=== PATIENT | male | born 1980 | race African-American/Black ===

== ENCOUNTER 2017-10-08 11:50 | Emergency (ER) | payer OTHER ==
[2017-10-08 12:05] VITALS: PULSE 126; TEMP 98.6; BMI 47.5
--- NOTE | 2017-10-08 12:44 | PDOC ---
Attending Attestation - Resident Resident Name: Kamaljit Britton - ED Attending Attestation I have performed the following: I have examined & evaluated the patient, The case was reviewed & discussed with the resident, I agree w/resident's findings & plan, Exceptions are as noted - HPI HPI: 10/08/17 20:07 Agree with resident's history of present illness - Physicial Exam PE: 10/08/17 20:08 Agree with physical exam - Medical Decision Making 10/08/17 20:10 Enlarged lymph node under chin patient well-appearing no apparent distress no evidence of Cesar angina neck is supple patient nontoxic Possibly secondary to infected hair on chin. We'll treat with 1 week course of Augmentin patient return to ED for any severe worsening symptoms otherwise he will follow-up with ENT as an outpatient Findings, the need for follow-up, strict return instructions discussed with patient.
--- NOTE | 2017-10-08 13:15 | PDOC ---
History of Present Illness - General Chief Complaint: Pain, Acute Stated Complaint: SWOLLEN NECK, CONGESTED Time Seen by Provider: 10/08/17 12:40 History Source: Patient Exam Limitations: No Limitations - History of Present Illness Initial Comments: 10/08/17 13:13 37 with pmh of HTN presents with tender left-sided submental mass increasing in size for the past few days. Also admits to ingrown hair under chin near area a few days before apparition of mass. 10/08/17 20:08 Past History - Past Medical History Allergies/Adverse Reactions: Allergies Allergy/AdvReac Type Severity Reaction Status Date / Time shellfish derived Allergy Difficulty Verified 10/08/17 11:59 Breathing Home Medications: Ambulatory Orders Losartan Potassium [Cozaar -] 100 mg PO DAILY #30 tablet 05/31/16 Amoxicillin - [Amoxicillin 500mg Capsule -] 500 mg PO TID 06/23/16 Ergocalciferol (Vitamin D2) [Vitamin D2] 50,000 unit PO WEEKLY 06/23/16 Oxycodone HCl/Acetaminophen [Percocet 5-325 mg Tablet] 1 - 2 tab PO Q4H PRN #10 tablet MDD 6 06/23/16 Simvastatin [Zocor -] 20 mg PO HS 06/23/16 Clindamycin [Cleocin -] 300 mg PO TID #21 capsule 10/05/16 Diazepam [Valium] 2 mg PO TID PRN #15 tablet MDD 10mg 11/04/16 Naproxen [Naprosyn -] 500 mg PO BID PRN #14 tablet 11/04/16 Amoxicillin/Potassium Clav [Augmentin 875-125 Tablet] 1 each PO BID 7 Days #14 tablet 10/08/17 Unobtainable 10/08/17 COPD: No HTN: Yes Hypercholesterolemia: Yes - Surgical History Orthopedic Surgery: Yes (bone fragment lodged in rt elbow) - Immunization History Immunization Up to Date: Yes - Suicide/Smoking/Psychosocial Hx Smoking History: Never smoked Have you smoked in the past 12 months: No Information on smoking cessation initiated: No Hx Alcohol Use: No Drug/Substance Use Hx: No Substance Use Type: None Hx Substance Use Treatment: No Review of Systems - Review of Systems Able to Perform ROS?: Yes Is the patient limited German proficient: No Constitutional: No: Symptoms Reported HEENTM: Yes: See HPI Respiratory: No: Symptoms reported Cardiac (ROS): No: Symptoms Reported ABD/GI: No: Symptoms Reported : No: Symptoms Reported Musculoskeletal: No: Symptoms Reported Integumentary: No: Symptoms Reported Neurological: No: Symptoms reported *Physical Exam - Vital Signs Last Vital Signs Temp Pulse Resp BP Pulse Ox 98.6 F 126 H 20 161/104 97 10/08/17 12:01 10/08/17 12:01 10/08/17 12:01 10/08/17 12:01 10/08/17 12:01 - Physical Exam General Appearance: Yes: Nourished, Appropriately Dressed, Obese. No: Apparent Distress HEENT: positive: EOMI, LYUDMILA, Normal ENT Inspection Neck: positive: Other (swollen mass under left chin, not fluctuent, fixed tender , oblong. Healing ingrown hair with scar next to it) Respiratory/Chest: positive: Lungs Clear, Normal Breath Sounds. negative: Chest Tender Cardiovascular: positive: Regular Rhythm, Regular Rate, S1, S2 Gastrointestinal/Abdominal: positive: Normal Bowel Sounds, Soft, Protuberent. negative: Tender Medical Decision Making - Medical Decision Making 10/08/17 20:11 Bedside ultrasound of mass revealing round cystic nature. Likely swollen submental lymph node. Treated with Augmentin, given outpatient prescription. D/c *DC/Admit/Observation/Transfer Diagnosis at time of Disposition: Abscess of neck - Discharge Dispostion Disposition: HOME Condition at time of disposition: Good - Prescriptions Prescriptions: Amoxicillin/Potassium Clav [Augmentin 875-125 Tablet] 1 each PO BID 7 Days #14 tablet - Referrals Referrals: Henri Iglesias MD [Primary Care Provider] - - Patient Instructions Printed Discharge Instructions: DI for Folliculitis - Post Discharge Activity
[2017-10-08] MEDS ORDERED: AMOX TR/POT CLAV 875MG/125MG TABLETS (FP) PO ONE (13:20)
[2017-10-08] MEDS ORDERED: AMOX TR/POT CLAV 875MG/125MG TABLETS (FP) ONE (14:07)
[2017-10-08 14:13] VITALS: BP 148/71
== END 2017-10-08 14:15 | disposition home or self-care (01) ==
LOC: JER 11:50
DX: L04.0 Acute lymphadenitis of face, head and neck (principal); I10 Essential (primary) hypertension; E78.00 Pure hypercholesterolemia, unspecified
CPT/HCPCS: 99282-25

== ENCOUNTER 2018-02-26 06:28 | Inpatient (IN) | payer OTHER ==
--- NOTE | 2018-02-26 07:09 | PDOC ---
History of Present Illness <Rhonda Gilliland - Last Filed: 02/26/18 08:15> - History of Present Illness Initial Comments: 02/26/18 07:24 The patient is a 37 year old male with a history of HTN, HLD, Asthma who presents for evaluation of SOB. The patient reports a 2 day history of worsening SOB and chest tightness with associated productive cough prompting his presentation to the ED for evaluation. The patient denies similar symptoms in the past and endorses some subjective fevers and chills. He otherwise denies chest pain, nausea, vomiting, abdominal pain, recent long travel, or changes with urination or bowel movements. <MyrnaEsequiel - Last Filed: 02/26/18 10:57> - General Chief Complaint: Shortness of Breath Stated Complaint: S.O.B. Time Seen by Provider: 02/26/18 07:02 Past History <Rhonda Gilliland - Last Filed: 02/26/18 08:15> - Past Medical History COPD: No HTN: Yes Hypercholesterolemia: Yes - Surgical History Orthopedic Surgery: Yes (bone fragment lodged in rt elbow) - Immunization History Immunization Up to Date: Yes - Suicide/Smoking/Psychosocial Hx Smoking History: Never smoked Have you smoked in the past 12 months: No Information on smoking cessation initiated: No Hx Alcohol Use: No Drug/Substance Use Hx: No Substance Use Type: None Hx Substance Use Treatment: No <Esequiel Norris - Last Filed: 02/26/18 10:57> - Past Medical History Allergies/Adverse Reactions: Allergies Allergy/AdvReac Type Severity Reaction Status Date / Time shellfish derived Allergy Difficulty Verified 02/26/18 06:49 Breathing Home Medications: Ambulatory Orders Amlodipine Besylate [Norvasc -] 5 mg PO DAILY 02/26/18 Losartan Potassium 25 mg PO DAILY 02/26/18 Simvastatin 40 mg PO DAILY 02/26/18 Review of Systems - Review of Systems Comments:: 02/26/18 07:29 Constitutional: Fevers. No fatigue, malaise HEENT: No Rhinorrhea, nasal congestion, visual changes Cardiovascular: Chest Tightness. No syncope, palpitations, lightheadedness Respiratory: Cough, SOB. No Hemoptysis, Gastrointestinal: No Abdominal pain, Nausea, Vomiting, Constipation, Diarrhea, Melena Genitourinary: No Dysuria, Frequency, Urgency, Hesitancy, Hematuria, Flank pain Musculoskeletal: No Myalgia, arthralgia Skin: No rashes, itching, bruising, pallor Neurologic: No Headache, Dizziness, Numbness, Weakness, or Tingling Psychiatric: No Hallucinations. No SI or HI <Esequiel Norris - Last Filed: 02/26/18 10:57> *Physical Exam - Vital Signs Last Vital Signs Temp Pulse Resp BP Pulse Ox 98.9 F 132 H 20 161/13 95 02/26/18 06:44 02/26/18 06:44 02/26/18 06:44 02/26/18 06:44 02/26/18 06:55 <Rhonda Gilliland - Last Filed: 02/26/18 08:15> - Vital Signs Last Vital Signs Temp Pulse Resp BP Pulse Ox 98.9 F 132 H 20 161/13 95 02/26/18 06:44 02/26/18 06:44 02/26/18 06:44 02/26/18 06:44 02/26/18 06:55 - Physical Exam Comments: 02/26/18 07:30 General Appearance: Nourished. No Apparent Distress HEENT: EOMI, LYUDMILA. No Pharyngeal Erythema, Tonsillar Exudate, Tonsillar Erythema Neck: No Cervical Lymphadenopathy Respiratory/Chest: Lungs Clear, Normal Breath Sounds. Diffuse Expiratory Wheezing noted on exam. No Crackles, Rales, Rhonchi, Cardiovascular: Regular Rhythm, Regular Rate. No Murmur, Gallops, Rubs Gastrointestinal/Abdominal: Normal Bowel Sounds, Soft. No Guarding, Rebound, Tenderness Musculoskeletal: No CVA Tenderness Extremity: Normal Capillary Refill Integumentary: Normal Color, Dry, Warm Neurologic: Fully Oriented, Alert, Normal Mood/Affect, Normal Response, <Esequiel Norris - Last Filed: 02/26/18 10:57> Heart Score/ECG Review #1 ECG reviewed & interpreted by me at: 07:15 (Sinus Tachycardia, ST depressions in leads II, III, aVF) General ECG Interpretation: Sinus Rhythm, Normal Intervals <Esequiel Norris - Last Filed: 02/26/18 10:57> ED Treatment Course - LABORATORY CBC & Chemistry Diagram: 02/26/18 07:15 02/26/18 07:15 <Rhonda Gilliland - Last Filed: 02/26/18 08:15> - LABORATORY CBC & Chemistry Diagram: 02/26/18 07:15 02/26/18 07:15 <Esequiel Norris - Last Filed: 02/26/18 10:57> Medical Decision Making - Medical Decision Making 02/26/18 7:19pm Call placed to Dr. Butler's answering service, cardiology condominium manager, awaiting call back. 7:40pm Second call placed to Dr. Butler's answering service, cardiology condominium manager, awaiting call back. 8:[address] Bartlett, case was discussed. <Rhonda Gilliland - Last Filed: 02/26/18 08:15> - Medical Decision Making 02/26/18 07:31 The patient is a 37 year old male with a history of HTN, HLD who presents for evaluation of SOB. Differential includes but is not limited to: ACS, COPD, Asthma, Pneumonia, CHF, Infectious, metabolic derangement. EKG performed demonstrates concerning findings of ST depressions in leads II, III, aVF concerning for ischemia possible contributing to the patient's symptoms. We will obtain a cbc, cmp, troponin, bnp, chest plain film to evaluate further. We will treat with nitroglycerin in the meantime and obtain cardiology consultation. We will continue to monitor and reassess. 02/26/18 08:09 We discussed the case with Dr. Bartlett who reviewed the patient's EKG and agrees with possible ischemic changes although not acute STEMI at this time. We discussed that PE is on the differential and the patient should undergo CT to evaluate further. We will treat the patient with ASA and Dr. Bartlett will come evaluate. The patient reports some improvement in his symptoms after treatment with nitroglycerin. We will continue to monitor and reassess. 02/26/18 10:56 CBC, cmp, troponin are unremarkable. Chest plain film is unremarkable as read by our radiologist. The patient will require admission for further work up and monitoring given the patient's EKG changes and continued symptoms. We discussed the case with the hospitalist team who accepted the patient for admission. <Esequiel Norris - Last Filed: 02/26/18 10:57> *DC/Admit/Observation/Transfer - Attestations Scribe Attestion: 02/26/18 07:22 Documentation prepared by Rhonda Gilliland, acting as vice president medical affairs for Marybel Talamantes MD. <Rhonda Gilliland - Last Filed: 02/26/18 08:15> - Discharge Dispostion Admit: Yes <Esequiel Norris - Last Filed: 02/26/18 10:57> Diagnosis at time of Disposition: SOB (shortness of breath), EKG abnormalities Chest pain Qualifiers: Chest pain type: unspecified Qualified Code(s): R07.9 - Chest pain, unspecified - Discharge Dispostion Condition at time of disposition: Stable - Referrals Referrals: Henri Iglesias MD [Primary Care Provider] - - Patient Instructions - Post Discharge Activity
[2018-02-26] MEDS ORDERED: ALBUTEROL SO4 2.5/IPRATROPIUM 0.5 INH SOL 3 ML VIAL.NEB. NEB ONE ×3 (07:14→11:09)
[2018-02-26] MEDS ORDERED: NITROGLYCERIN SUBLINGUAL 1/150 0.4 MG TAB SL ONE (07:19)
[2018-02-26] MEDS ORDERED: NITROGLYCERIN SUBLINGUAL 1/150 0.4 MG TAB ONE (07:29)
[2018-02-26 07:49] LABS: HEMATOCRIT 41.2 % (35.4-49); HEMOGLOBIN 13.6 GM/dL (11.7-16.9); MCH 27.9 pg (25.7-33.7); MEAN CELL VOLUME 84.5 fl (80-96); PLATELET COUNT 213 K/MM3 (134-434); RBC 4.88 M/mm3 (4.00-5.60)
--- NOTE | 2018-02-26 08:01 | PDOC ---
Attending Attestation - HPI HPI: 02/26/18 08:14 The patient is a 37 year old male, with a significant past medical history of hypertension, hyperlipidemia, and asthma, who presents to the emergency department with, two days of worsening shortness of breath. Secondary to his shortness of breath, the patient reports chest tightness with an associated productive cough. He denies similar symptoms in the past. He denies any recent long travel. He denies any recent fevers, chills, headache or dizziness. He denies any recent nausea, vomit, diarrhea or constipation. He denies any recent chest pain. He denies any recent dysuria, frequency, urgency or hematuria. Allergies: Shellfish derived. Past surgical history: None reported. Social History: Nonsmoker. Denies EtOH use and recreational drug use. Primary Care Physician: Dr. Henri Iglesias <Rhonda Gilliland - Last Filed: 02/26/18 08:13> - Resident Resident Name: Esequiel Norris - ED Attending Attestation I have performed the following: I have examined & evaluated the patient, The case was reviewed & discussed with the resident, I agree w/resident's findings & plan, Exceptions are as noted - Physicial Exam PE: GENERAL: Awake, alert, and fully oriented. Appears anxious. Morbidly obese. HEAD: No signs of trauma EYES: PERRLA, EOMI, sclera anicteric, conjunctiva clear ENT: Auricles normal inspection, hearing grossly normal, nares patent, oropharynx clear without exudates. Moist mucosa NECK: Normal ROM, supple, no lymphadenopathy, JVD, or masses LUNGS: Breath sounds equal, clear to auscultation bilaterally. No wheezes, and no crackles HEART: Tachycardic, normal S1 and S2, no murmurs, rubs or gallops ABDOMEN: Soft, nontender, normoactive bowel sounds. No guarding, no rebound. No masses EXTREMITIES: Normal range of motion, no edema. No clubbing or cyanosis. No cords, erythema, or tenderness NEUROLOGICAL: Cranial nerves II through XII grossly intact. Normal speech, normal gait. Motor and sensation intact. SKIN: Warm, Dry, normal turgor, no rashes or lesions noted. - Medical Decision Making 02/26/18 08:31 Pt presents with SOB, productive cough. EKG concerning for ischemia based on inferior ST depressions. Patient is hypoxic to 88%, improves to 94% with 4L NC. DDx includes acute LA, PE, CHF, pna, asthma. EKG changes are concerning, and he initially did not state history of asthma (it was found upon chart review). He improved with nitro. D/w Dr. Bartlett, bindery production manager for cardiology. We will obtain CTA. Will plan for admission. <Marybel Talamantes - Last Filed: 02/26/18 10:50> Attestations - Attestations 02/26/18 08:14 Documentation prepared by Rhonda Gilliland, acting as medical surgical tech for Marybel Talamantes MD. <Rhonda Gilliland - Last Filed: 02/26/18 08:13>
[2018-02-26] MEDS ORDERED: ASPIRIN 81 MG CHEWABLE TABLETS PO ONE (08:07)
[2018-02-26] MEDS ORDERED: ASPIRIN 81 MG CHEWABLE TABLETS ONE (08:11)
[2018-02-26 08:13] LABS: ALBUMIN 3.7 g/dl (3.4-5.0); ANION GAP 7 (8-16); BILIRUBIN,TOTAL 0.5 mg/dL (0.2-1.0); BLOOD UREA NITROGEN 17 mg/dL (7-18); CHLORIDE 105 mmol/L (98-107); CO2 28 mmol/L (21-32); CREATININE 1.4 mg/dL (0.7-1.3); GLUCOSE,RANDOM 122 mg/dL (74-106); SGOT/AST 15 U/L (15-37); SGPT/ALT 23 U/L (12-78); SODIUM 140 mmol/L (136-145); TOT PROT 7.6 g/dl (6.4-8.2)
[2018-02-26 08:16] LABS: ALK PHOS 83 U/L (45-117)
[2018-02-26] MEDS ORDERED: SODIUM CHLORIDE 500 ML IV STA (08:25)
--- NOTE | 2018-02-26 09:23 | CON.CARD ---
Consult Consult Specialty:: Cardiology for Leah Referred by:: Dr. Talamantes Reason for Consultation:: Abnl ECG, dyspnea - History of Present Illness Chief Complaint: Cough, rhinorrhea and SOB x 1 day History of Present Illness: 37M HTN, HL, asthma presents to ER with one day of dry cough, SOB and "runny nose" Last evening he heard "crackles" when he was breathing and decided to come to ER. Denies palpitations, chest pain. No edema. No PND/orthopnea. No fevers or chills. - History Source History Provided By: Patient, Medical Record Limitations to Obtaining History: No Limitations - Past Medical History Cardio/Vascular: Yes: HTN, Hyperlipdemia Pulmonary: Yes: Asthma Gastrointestinal: No: Ascites, Cancer, Constipation, Crohn's Disease, Diverticulitis, Diverticulosis, Esophageal Varices, Gastritis, GERD, GI Bleed, Hemorrhoids, Hiatal Hernia, Inflamatory Bowel Disease, Irritable Bowel Disease, Pancreatitis, Peptic Ulcer Disease, Ulcerative Colitis, Other Hepatobiliary: No: Cirrhosis, Cholelithiasis, Cholecystitis, Choledocholithiasis , Hepatitis A, Hepatitis B, Hepatitis C, Other Renal/: No: Renal Failure, Renal Inusuff, BPH, Cancer, Hematuria, Hemodialysis , Neurogenic Bladder, Renal Calculi, UTI, Other Heme/Onc: No: Anemia, B12 Deficiency, Bleeding Disorder, Cancer, Current Chemotherapy, Current Radiation Therapy, Hemochromatosis, Hypercoaguable State, Myeloproliferative Synd, Sickle Cell Disease, Sickle Cell Trait, Thrombocytopenia, Other Infectious Disease: No: AIDS, C-Diff, Herpes Zoster, HIV, MRSA, STD's, Tuberculosis, VREF, Other Musculoskeletal: Yes: Other (right elbow injury in ) ENT: No: Allergic Rhinitis, Sinusitis, Other Endocrine: No: [place]'s Disease, Laron's Disease, Diabetes Insipidus, Diabetes Mellitus, Hyperparathyroidism, Hyperthyroidism, Hypothyroidism, Osteopenia, SIADH, Other - Past Surgical History Past Surgical History: No: None, AAA Repair, AICD, Amputation, Appendectomy, Arthrosocopy, AV Fistula/Graft, Bariatric Surgery, Breast Biopsy, Bypass, CABG, Carotid Endarterectomy, Cataract Removal, Cholecystectomy, Colectomy, Colonoscopy, Colostomy, Craniotomy, , Cystectomy, Hernia Repair, Hysterectomy, Ileal Conduit, Ileosotomy, Joint Replacement, Kidney Transplant, Laminectomy, Liver Transplant, Mastectomy, Nephrectomy, Oopherectomy, Orchiectomy, Permanent Pacemaker, Prostatectomy, Splenectomy, Stent, Thoracotomy , TURP, Tonsillectomy, Tubal Ligation, Upper Endoscopy, Valve Replacement, Vasectomy, Vein Stripping/Ligation - Alcohol/Substance Use Hx Alcohol Use: No History of Substance Use: reports: None - Smoking History Smoking history: Never smoked Have you smoked in the past 12 months: No - Social History Usual Living Arrangement: Other (with family) Occupation: works for [employer] History of Recent Travel: No Home Medications - Allergies Allergies/Adverse Reactions: Allergies Allergy/AdvReac Type Severity Reaction Status Date / Time shellfish derived Allergy Difficulty Verified 02/26/18 06:49 Breathing - Home Medications Home Medications: Ambulatory Orders Amlodipine Besylate [Norvasc -] 5 mg PO DAILY 02/26/18 Losartan Potassium 25 mg PO DAILY 02/26/18 Simvastatin 40 mg PO DAILY 02/26/18 Family Disease History - Family Disease History Family History: Unremarkable (no early CAD or SCD) Family Disease History: Other: Mother (HTN) Review of Systems Findings/Remarks: 37 year old male, with a significant past medical history of hypertension, hyperlipidemia, and asthma, who presents to the emergency department with, two days of worsening shortness of breath. Secondary to his shortness of breath, the patient reports chest tightness with an associated productive cough. He denies similar symptoms in the past. He denies any recent long travel. He denies any recent fevers, chills, headache or dizziness. He denies any recent nausea, vomit, diarrhea or constipation. He denies any recent chest pain. He denies any recent dysuria, frequency, urgency or hematuria. Allergies: Shellfish derived. Past surgical history: None reported. Social History: Nonsmoker. Denies EtOH use and recreational drug use. - Review of Systems Constitutional: denies: No Symptoms, Chills, Diaphoresis, Fever, Lethargy, Loss of Appetite, Malaise, Night Sweats, Unintentional Wgt. Loss, Weakness, Other Eyes: denies: No Symptoms, Blind Spots, Blurred Vision, Double Vision, Eye Pain , Floaters, Photophobia, Recent Change in Vision, Other HENT: denies: No Symptoms, Difficult Swallowing, Ear Discharge, Ear Pain, Epistaxis, Gingival Bleeding, Hearing Loss, Mouth Swelling, Nasal Congestion, Ocular Prosthesis, Throat Pain, Toothache, Ringing in Ears, Other Neck: denies: No Symptoms, Decreased ROM, Lumps, Pain on Movement, Stiffness, Swollen Glands, Tenderness, Other Cardiovascular: denies: No Symptoms, Chest Pain, Edema, Palpitations, Shortness of Breath, Other Respiratory: reports: Cough, Exercise Intolerance Gastrointestinal: denies: No Symptoms, Abdominal Pain, Bloating, Constipation, Diarrhea, Dysphagia, Indigestion, Melena, Nausea, Rectal Bleeding, Vomiting, Vomiting Blood, Other Genitourinary: denies: No Symptoms, Burning, Discharge, Dysuria, Flank Pain, Frequency, Hematuria, Incontinence, Lesions, Menses, Pain, Testicular Mass, Testicular Pain, Testicular Swelling, Urgency, Vaginal Bleeding, Other Breasts: denies: No Symptoms Reported, See HPI, Breast Implants, Discharge from Nipple, Lumps, Pain, Skin Changes, Other Musculoskeletal: denies: No Symptoms, Back Pain, Crepitus, Decreased ROM, Extremity Pain, Joint Pain, Joint Swelling, Muscle Pain, Muscle Cramps, Muscle Weakness, Other Integumentary: denies: No Symptoms, Blister, Bruising, Change in Color, Eczema, Erythema, Incision, Lesions, Lump, Pallor, Pruritis, Rash, Wound, Other Neurological: denies: No Symptoms, Change in LOC, Change in Speech, Confusion, Dizziness, Headache, Incoordination, Numbness, Parasthesia, Pre-Existing Deficit , Seizure, Syncope, Tremors, Unsteady Gait, Weakness, Other Endocrine: denies: No Symptoms, Excessive Sweating, Flushing, Increased Hunger, Increased Thirst, Intolerance to Cold, Intolerance to Heat, Unexplained Weight Gain, Unexplained Weight Loss, Other Hematology/Lymphatic: denies: No Symptoms, Easily Bruised, Excessive Bleeding, Swollen Glands, Other Psychiatric: denies: No Symptoms, Altered Sleep Pattern, Anxiety, Depression, Hallucinations, Panic, Paranoia, Suicidal, Other - Risk Factors Known Risk Factors: Yes: Hypercholesterolemia, Hypertension Vital Signs: Vital Signs Temperature 98.9 F 02/26/18 06:44 Pulse Rate 132 H 02/26/18 06:44 Respiratory Rate 20 02/26/18 06:44 Blood Pressure 161/13 02/26/18 06:44 O2 Sat by Pulse Oximetry (%) 95 02/26/18 06:55 Constitutional: Yes: No Distress, Calm Eyes: Yes: Conjunctiva Clear, EOM Intact. No: WNL, Cataracts, Diplopia, PERRL, Ptosis, Sclera Icterus, Tearing, Other HENT: Yes: Atraumatic, Normocephalic Respiratory: Yes: Wheezes (mild expiratory wheezing b/l, no rales) Gastrointestinal: Yes: Soft, Abdomen, Obese Cardiovascular: Yes: Regular Rate and Rhythm JVD: No Carotid Bruit: No PMI: Non-Displaced Heart Sounds: Yes: S1, S2 (RRR, no murmurs) Edema: Yes Edema: LLE: 1+, RLE: 1+ Peripheral Pulses WNL: Yes Neurological: Yes: Alert, Oriented ...Motor Strength: WNL Psychiatric: Yes: WNL - Other Data Labs, Other Data: CBC, BMP 02/26/18 07:15 02/26/18 07:15 Troponin, BNP 02/26/18 02/26/18 07:15 07:15 Troponin I < 0.02 D B-Natriuretic Peptide 38.75 Troponin, BNP 02/26/18 02/26/18 07:15 07:15 Troponin I < 0.02 D B-Natriuretic Peptide 38.75 NSR, LVH, NSST changes II, III, avF. Similar ST changes in II in 2016-- III and avF are new c/w previous ECG Echo: Pending, Report Reviewed (2016: SEVERE LVH and mildly dilated aortic root) Imaging - Results X-ray: Image Reviewed Cat Scan: Pending EKG: Image Reviewed Problem List - Problems (1) Dyspnea Code(s): R06.00 - DYSPNEA, UNSPECIFIED Qualifiers: Dyspnea type: shortness of breath Qualified Code(s): R06.02 - Shortness of breath; R06.00 - Dyspnea, unspecified; R06.01 - Orthopnea (2) Abnormal ECG Code(s): R94.31 - ABNORMAL ELECTROCARDIOGRAM [ECG] [EKG] (3) Hypertension Code(s): I10 - ESSENTIAL (PRIMARY) HYPERTENSION Qualifiers: Hypertension type: essential hypertension Qualified Code(s): I10 - Essential (primary) hypertension (4) Asthma Code(s): J45.909 - UNSPECIFIED ASTHMA, UNCOMPLICATED Qualifiers: Asthma severity: mild Asthma complication type: uncomplicated (5) Dilated aortic root Code(s): I77.810 - THORACIC AORTIC ECTASIA (6) Hyperlipidemia Code(s): E78.5 - HYPERLIPIDEMIA, UNSPECIFIED Assessment/Plan IMP: Dyspnea in setting of URI sx, probable acute exacerbation of asthma Moderate chronic uncontrolled HTN Abnl ECG- LVH, hypertensive heart disease History of mildly dilated ascending aorta REC: 1. F/u CTA to rule out PE, assess for infiltrates, f/u aortic diameter 2. Serial cardiac enzymes 3. Echo (has h/o severe LVH on echo 2015, likely cause of chronic diffuse ST/T changes). 4. Optimize BP regimen: increase amlodipine to 10mg daily, cont. Losartan. Would add HCTZ if creatinine stable. [facility]OVERAGE FOR [facility]
[2018-02-26] MEDS ORDERED: LOSARTAN POTASSIUM 25 MG TABLET ONE (11:09)
[2018-02-26] MEDS: LOSARTAN POTASSIUM 25 MG TABLET PO SCH (11:16)
[2018-02-26] MEDS: amLODIPine BESYLATE 10 MG TABLET (FP) PO SCH (11:55)
[2018-02-26 13:08] VITALS: BMI 46.1
--- NOTE | 2018-02-26 14:05 | HP ---
CHIEF COMPLAINT: shortness of breath, crackles, wheezing PCP: Henri Iglesias HISTORY OF PRESENT ILLNESS: This is a 37 year old male with PMHx of MRSA (lower lip), left arm surgery ( from football injury), HTN, hyperlipidemia who presented to the ED with shortness of breath, cough with yellow sputum, chest tightness, crackles, wheezing since Tuesday morning (yesterday). The patient reports the last time he had these symptoms, he had pneumonia about 1 year ago. He states that his grandmother is currently sick with a cold as well. The patient reports subjective fever and chills last night that improved after taking Ibuprofen. The patient reports feeling better after receiving a nebulizer in the ED. The patient denies any nausea, vomiting, palpitations, dizziness, syncope, headache , lower extremity edema, urinary symptoms. ER course was notable for: (1) Temp 98.9, pulse 132, BP 161/13?(error)? repeat 140/68 (2) WBC 12, eosinophilia 7 (3) Cr 1.4, CK 634 (4) Chest CTA limited study with no evidence of pulmonary embolism or acute pathology Recent Travel: denies PAST MEDICAL HISTORY: as above PAST SURGICAL HISTORY: as above Social History: Smoking: denies Alcohol: denies Drugs: denies Family History: Allergies shellfish derived Allergy (Verified 02/26/18 06:49) Difficulty Breathing HOME MEDICATIONS: Home Medications Medication Instructions Recorded Amlodipine Besylate [Norvasc -] 10 mg PO DAILY 02/26/18 Doxazosin Mesylate [Cardura -] 4 mg PO DAILY 02/26/18 Ergocalciferol (Vitamin D2) 50,000 unit PO WEEKLY 02/26/18 [Vitamin D2] Losartan/Hydrochlorothiazide 1 each PO DAILY 02/26/18 [Losartan-Hctz 100-25 mg Tab] Simvastatin 40 mg PO DAILY 02/26/18 REVIEW OF SYSTEMS CONSTITUTIONAL: Subjective fever last night and chills that improved with ibuprofen Absent: diaphoresis, generalized weakness, malaise, loss of appetite, weight change HEENT: Absent: rhinorrhea, nasal congestion, throat pain, throat swelling, difficulty swallowing, mouth swelling, ear pain, eye pain, visual changes CARDIOVASCULAR: Chest tightness that began yesterday morning. Absent: chest pain, syncope, palpitations, irregular heart rate, lightheadedness , peripheral edema RESPIRATORY: + cough with yellowish sputum that began yesterday morning. Increase in shortness of breath, chest tightness as well. Crackles and wheezing noted. Absent: orthopnea, stridor, hemoptysis GASTROINTESTINAL: Absent: abdominal pain, abdominal distension, nausea, vomiting, diarrhea, constipation, melena, hematochezia GENITOURINARY: Absent: dysuria, frequency, urgency, hesitancy, hematuria, flank pain, genital pain MUSCULOSKELETAL: Absent: myalgia, arthralgia, joint swelling, back pain, neck pain SKIN: Absent: rash, itching, pallor HEMATOLOGIC/IMMUNOLOGIC: Absent: easy bleeding, easy bruising, lymphadenopathy, frequent infections ENDOCRINE: Absent: unexplained weight gain, unexplained weight loss, heat intolerance, cold intolerance NEUROLOGIC: Absent: headache, focal weakness or paresthesias, dizziness, unsteady gait, seizure, mental status changes, bladder or bowel incontinence PSYCHIATRIC: Absent: anxiety, depression, suicidal or homicidal ideation, hallucinations. PHYSICAL EXAMINATION Vital Signs - 24 hr 02/26/18 02/26/18 02/26/18 06:44 06:55 12:24 Temperature 98.9 F Pulse Rate 132 H Pulse Rate [ 99 H Left] Respiratory 20 20 Rate Blood Pressure 161/13 Blood Pressure 140/68 [Arm] O2 Sat by Pulse 93 L 95 98 Oximetry (%) 02/26/18 13:02 Temperature Pulse Rate 95 H Pulse Rate [ Left] Respiratory 18 Rate Blood Pressure Blood Pressure [Arm] O2 Sat by Pulse 95 Oximetry (%) GENERAL: Awake, alert, and fully oriented, in no acute distress. Obese HEAD: Normal with no signs of trauma. EYES: Pupils equal, round and reactive to light, extraocular movements intact, sclera anicteric, conjunctiva clear. No lid lag. EARS, NOSE, THROAT: Ears normal, nares patent, oropharynx clear without exudates. Moist mucous membranes. NECK: Normal range of motion, supple without lymphadenopathy, or masses. LUNGS: B/l end expiratory wheezing and mild crackles. No accessory muscle use. HEART: Regular rate and rhythm, normal S1 and S2 ABDOMEN: Soft, nontender, not distended, normoactive bowel sounds, no guarding, no rebound, no masses. No hepatomegaly or splenomegaly. MUSCULOSKELETAL: Normal range of motion at all joints. No bony deformities or tenderness. No CVA tenderness. UPPER EXTREMITIES: 2+ pulses, warm, well-perfused. No cyanosis. No clubbing. No peripheral edema. LOWER EXTREMITIES: 2+ pulses, warm, well-perfused. No calf tenderness. No peripheral edema. NEUROLOGICAL: Cranial nerves II-XII intact. Normal speech. PSYCHIATRIC: Cooperative. Good eye contact. Appropriate mood and affect. SKIN: B/l lower extremity dryness, flaking. Warm, no rashes or lesions noted, normal capillary refill. Laboratory Results - last 24 hr 02/26/18 02/26/18 02/26/18 07:15 07:15 07:15 WBC 12.0 H RBC 4.88 Hgb 13.6 D Hct 41.2 MCV 84.5 MCH 27.9 MCHC 33.0 RDW 14.0 Plt Count 213 D MPV 10.0 Neutrophils % No Result Required. Neutrophils % (Manual) 65.0 Lymphocytes % No Result Required. Lymphocytes % (Manual) 21.0 Monocytes % (Manual) 8 Eosinophils % (Manual) 7.0 H Sodium 140 Potassium 4.0 Chloride 105 Carbon Dioxide 28 Anion Gap 7 L BUN 17 D Creatinine 1.4 H D Creat Clearance w eGFR 57.34 Random Glucose 122 H Calcium 9.0 Total Bilirubin 0.5 AST 15 D ALT 23 D Alkaline Phosphatase 83 D Creatine Kinase 634 H Creatine Kinase Index 0.6 CK-MB (CK-2) 3.823 H Troponin I < 0.02 D B-Natriuretic Peptide 38.75 Total Protein 7.6 Albumin 3.7 D Assessment: This is a 37 year old male with PMHx of MRSA (lower lip), left arm surgery (from football injury), HTN, hyperlipidemia who presented to the ED with shortness of breath, cough with yellow sputum, chest tightness, crackles, wheezing since Tuesday morning (yesterday). Plan: 1) Acute asthma exacerbation - Patient denies a history of asthma - Patient reports symptoms improved with nebulizers - Duonebs q4h prn - Solu-medrol 40mg q8h - F/u pulmonary consult 2) Shortness of breath - Chest CTA with no acute process. Limited, but no evidence of PE 3) Chest tightness - Trend troponins - EKG with ST changes in II, III, avF - ECHO 2016 with severe concentric left ventricular hypertrophy - F/u ECHO in AM - Appreciate cardiology consult 4) HTN - Optimize BP - Norvasc 10mg po daily - Losartan (monitor Cr closely) 5) Hyperlipidemia - Continue statin 6) F/E/N: - Sodium controlled diet - Monitor electrolytes 7) Prophylaxis: - Heparin 5,000u sq tid - OOB ambulating 8) Dispo: - Requires continued inpatient care CODE STATUS: FULL CODE Visit type - Emergency Visit Emergency Visit: Yes ED Registration Date: 02/26/18 Care time: The patient presented to the Emergency Department on the above date and was hospitalized for further evaluation of their emergent condition. - New Patient This patient is new to me today: Yes Date on this admission: 02/26/18 - Critical Care Critical Care patient: No Hospitalist Screening - Colonoscopy Questionnaire Colonoscopy Questionnaire: Colonoscopy Questionnaire - Patient: 50 - 75 years old and never had a screening colonoscopy: No History of colon or rectal polyps, or CA: Unknown History of IBD, Crohn's disease or UC: Unknown History of abdominal radiation therapy as a child: Unknown - Relative: 1 with colon or rectal CA, or polyps at age 60 or younger: Unknown Colon or rectal CA diagnosed at age 45 or younger: Unknown Multiple relatives with colon or rectal CA: Unknown - Outcome: Screening Result: Negative Screen
[2018-02-26] MEDS: methylPREDNISolone NA SUCC 40 MG/1 ML VIAL IVPUSH SCH ×2 (15:36→17:10)
--- NOTE | 2018-02-26 16:19 | CON.PULM ---
Consult Consult Specialty:: PULM/CCM Referred by:: MARCELLE Reason for Consultation:: SOB - History of Present Illness Chief Complaint: SOB History of Present Illness: 37 M, previous history of lower lip MRSA infection, left arm surgery due to a football injury, HTN, and HPL. No history of asthma. He was admitted 05/2106 for an extensive lingular CAP treatment. Clinical history that is highly suspicious for Sleep Apnea. Reports 1 day of upper airway "crackling". Associated shortness of breath and cough with yellow sputum. No travel history. Reports that his grandmother has a URI. No fever or chills. No night sweats. He reported feeling better after receiving a nebulizer in the ED. - History Source History Provided By: Patient Limitations to Obtaining History: No Limitations - Past Medical History Cardio/Vascular: Yes: HTN, Hyperlipdemia Pulmonary: Yes: Asthma Gastrointestinal: No: Ascites, Cancer, Constipation, Crohn's Disease, Diverticulitis, Diverticulosis, Esophageal Varices, Gastritis, GERD, GI Bleed, Hemorrhoids, Hiatal Hernia, Inflamatory Bowel Disease, Irritable Bowel Disease, Pancreatitis, Peptic Ulcer Disease, Ulcerative Colitis, Other Hepatobiliary: No: Cirrhosis, Cholelithiasis, Cholecystitis, Choledocholithiasis , Hepatitis A, Hepatitis B, Hepatitis C, Other Renal/: No: Renal Failure, Renal Inusuff, BPH, Cancer, Hematuria, Hemodialysis , Neurogenic Bladder, Renal Calculi, UTI, Other Infectious Disease: No: AIDS, C-Diff, Herpes Zoster, HIV, MRSA, STD's, Tuberculosis, VREF, Other Musculoskeletal: Yes: Other (right elbow injury in ) ENT: No: Allergic Rhinitis, Sinusitis, Other Endocrine: No: Eduard's Disease, [place]'s Disease, Diabetes Insipidus, Diabetes Mellitus, Hyperparathyroidism, Hyperthyroidism, Hypothyroidism, Osteopenia, SIADH, Other - Past Surgical History Past Surgical History: No: None, AAA Repair, AICD, Amputation, Appendectomy, Arthrosocopy, AV Fistula/Graft, Bariatric Surgery, Breast Biopsy, Bypass, CABG, Carotid Endarterectomy, Cataract Removal, Cholecystectomy, Colectomy, Colonoscopy, Colostomy, Craniotomy, , Cystectomy, Hernia Repair, Hysterectomy, Ileal Conduit, Ileosotomy, Joint Replacement, Kidney Transplant, Laminectomy, Liver Transplant, Mastectomy, Nephrectomy, Oopherectomy, Orchiectomy, Permanent Pacemaker, Prostatectomy, Splenectomy, Stent, Thoracotomy , TURP, Tonsillectomy, Tubal Ligation, Upper Endoscopy, Valve Replacement, Vasectomy, Vein Stripping/Ligation - Alcohol/Substance Use Hx Alcohol Use: No History of Substance Use: reports: None - Smoking History Smoking history: Never smoked Have you smoked in the past 12 months: No - Social History Usual Living Arrangement: Other (with family) Occupation: works for [employer] History of Recent Travel: No Home Medications - Allergies Allergies/Adverse Reactions: Allergies Allergy/AdvReac Type Severity Reaction Status Date / Time shellfish derived Allergy Difficulty Verified 02/26/18 06:49 Breathing - Home Medications Home Medications: Ambulatory Orders Amlodipine Besylate [Norvasc -] 10 mg PO DAILY 02/26/18 Doxazosin Mesylate [Cardura -] 4 mg PO DAILY 02/26/18 Ergocalciferol (Vitamin D2) [Vitamin D2] 50,000 unit PO WEEKLY 02/26/18 Losartan/Hydrochlorothiazide [Losartan-Hctz 100-25 mg Tab] 1 each PO DAILY 02/26 Simvastatin 40 mg PO DAILY 02/26/18 Family Disease History - Family Disease History Family Disease History: Other: Mother (HTN) Review of Systems - Review of Systems Constitutional: denies: Chills, Fever, Malaise, Night Sweats Eyes: reports: No Symptoms HENT: reports: No Symptoms Neck: reports: No Symptoms Cardiovascular: reports: Chest Pain, Shortness of Breath. denies: Edema, Palpitations Respiratory: reports: Cough, Snoring, SOB, SOB on Exertion, Wheezing. denies: Hemoptysis Gastrointestinal: reports: No Symptoms Genitourinary: reports: No Symptoms Breasts: reports: No Symptoms Reported Musculoskeletal: reports: No Symptoms Integumentary: reports: No Symptoms Neurological: reports: No Symptoms Endocrine: reports: No Symptoms Hematology/Lymphatic: reports: No Symptoms Psychiatric: reports: No Symptoms Physical Exam Vital Sings: Vital Signs Temperature 98.9 F 02/26/18 06:44 Pulse Rate 95 H 02/26/18 13:02 Respiratory Rate 18 02/26/18 13:02 Blood Pressure 140/68 02/26/18 12:24 O2 Sat by Pulse Oximetry (%) 95 02/26/18 13:02 Constitutional: Yes: No Distress, Calm, Obese Eyes: Yes: Conjunctiva Clear, EOM Intact HENT: Yes: Atraumatic, Normocephalic Neck: Yes: Supple, Trachea Midline Cardiovascular: Yes: Regular Rate and Rhythm Respiratory: Yes: Regular, CTA Bilaterally, Cough. No: Diminished, Rales, Rhonchi, Stridor, Tachypnea, Wheezes ...Inspection: Yes: WNL ...Clubbing: No Gastrointestinal: Yes: Normal Bowel Sounds, Soft, Abdomen, Obese Renal/: Yes: WNL Breast(s): Yes: WNL Musculoskeletal: Yes: WNL Edema: No Peripheral Pulses WNL: Yes Integumentary: Yes: WNL Neurological: Yes: Alert, Oriented ...Motor Strength: WNL Psychiatric: Yes: WNL, Alert, Oriented Labs: CBC, BMP 02/26/18 07:15 02/26/18 07:15 Imaging - Results Chest X-ray: Report Reviewed, Image Reviewed Problem List - Problems (1) Abnormal ECG Code(s): R94.31 - ABNORMAL ELECTROCARDIOGRAM [ECG] [EKG] (2) Chest pain Code(s): R07.9 - CHEST PAIN, UNSPECIFIED Qualifiers: Chest pain type: unspecified Qualified Code(s): R07.9 - Chest pain, unspecified (3) Hyperlipidemia Code(s): E78.5 - HYPERLIPIDEMIA, UNSPECIFIED (4) Hypertension Code(s): I10 - ESSENTIAL (PRIMARY) HYPERTENSION Qualifiers: Hypertension type: essential hypertension Qualified Code(s): I10 - Essential (primary) hypertension (5) SOB (shortness of breath) Code(s): R06.02 - SHORTNESS OF BREATH (6) Hypertension Code(s): I10 - ESSENTIAL (PRIMARY) HYPERTENSION (7) Morbid (severe) obesity due to excess calories Code(s): E66.01 - MORBID (SEVERE) OBESITY DUE TO EXCESS CALORIES Assessment/Plan Short course of Medrol BD TX PRN PFTs after D/C Should have sleep study to R/O OSAS after D/C Cardiac workup per cardiology O2 as needed VTE prophylaxis Will follow Thank you. Dr Longo
[2018-02-26 17:02] LABS: URINE APPEARANCE CLEAR; URINE BILIRUBIN NEGATIVE (<2.0 mg/dL); URINE BLOOD NEGATIVE (NEGATIVE); URINE COLOR LTYELLOW; URINE GLUCOSE (UA) NEGATIVE (NEGATIVE); URINE KETONE NEGATIVE (NEGATIVE); URINE LEUK ESTERASE NEGATIVE (NEGATIVE); URINE NITRITE NEGATIVE (NEGATIVE); URINE PROTEIN NEGATIVE (NEGATIVE); URINE UROBILINOGEN NEGATIVE mg/dL (0.2-1.0)
[2018-02-26] MEDS: ALBUTEROL SO4 2.5/IPRATROPIUM 0.5 INH SOL 3 ML VIAL.NEB. NEB PRN (20:46)
[2018-02-26] MEDS: HEPARIN NA (PORCINE) 5,000 UNITS/ML 1ML VIAL SQ SCH (22:53)
[2018-02-27] MEDS: methylPREDNISolone NA SUCC 40 MG/1 ML VIAL IVPUSH SCH ×3 (01:32→17:19)
[2018-02-27] MEDS ORDERED: ACETAMINOPHEN 325 MG TABLET (FP) PO ONE (01:41)
[2018-02-27] MEDS: HEPARIN NA (PORCINE) 5,000 UNITS/ML 1ML VIAL SQ SCH ×3 (06:00→21:26)
[2018-02-27] MEDS: ALBUTEROL SO4 2.5/IPRATROPIUM 0.5 INH SOL 3 ML VIAL.NEB. NEB PRN ×2 (06:19→15:50)
[2018-02-27 08:13] LABS: BASO % 0.1 % (0-2.0); HEMATOCRIT 40.3 % (35.4-49); HEMOGLOBIN 13.4 GM/dL (11.7-16.9); LYMPH % 17.8 % (8-40); MCH 28.4 pg (25.7-33.7); MCHC 33.3 g/dl (32.0-35.9); MEAN CELL VOLUME 85.2 fl (80-96); MEAN PLT VOLUME 10.2 fl (7.5-11.1); NEUT % 80.1 % (42.8-82.8); PLATELET COUNT 241 K/MM3 (134-434); RBC 4.73 M/mm3 (4.00-5.60); RDW 14.8 % (11.9-15.9); WHITE BLOOD COUNT 9.9 K/mm3 (4.0-10.0)
[2018-02-27 08:44] LABS: ALBUMIN 3.8 g/dl (3.4-5.0); ANION GAP 8 (8-16); BLOOD UREA NITROGEN 18 mg/dL (7-18); CALCIUM 9.3 mg/dL (8.5-10.1); CHLORIDE 103 mmol/L (98-107); CO2 24 mmol/L (21-32); CREATININE 1.4 mg/dL (0.7-1.3); GLUCOSE,RANDOM 144 mg/dL (74-106); POTASSIUM 4.6 mmol/L (3.5-5.1); SGOT/AST 17 U/L (15-37); SGPT/ALT 25 U/L (12-78); SODIUM 135 mmol/L (136-145)
[2018-02-27 08:45] LABS: ALK PHOS 89 U/L (45-117); BILIRUBIN,TOTAL 0.6 mg/dL (0.2-1.0); TOT PROT 8.2 g/dl (6.4-8.2)
[2018-02-27] MEDS: amLODIPine BESYLATE 10 MG TABLET (FP) PO SCH (09:29)
[2018-02-27] MEDS: ATORVASTATIN CA 20 MG TABLET (FP) PO SCH (09:29)
[2018-02-27] MEDS: LOSARTAN POTASSIUM 25 MG TABLET PO SCH (09:29)
--- NOTE | 2018-02-27 09:44 | PN ---
Progress Note (short form) - Note Progress Note: Subjective: The patient was seen and examined at the bedside, he reports feeling better today. States his chest tightness has improved Awaiting ECHO Still with wheezing Current Medications Generic Name Dose Route Start Last Admin Trade Name Freharrison PRN Reason Stop Dose Admin Albuterol/Ipratropium 1 amp 02/26/18 15:04 02/27/18 06:19 Duoneb - NEB 1 amp Q4H PRN Administration SHORTNESS OF BREATH Amlodipine Besylate 10 mg 02/26/18 10:30 02/27/18 09:29 Norvasc - PO 10 mg DAILY KEITH Administration Atorvastatin Calcium 20 mg 02/27/18 10:00 02/27/18 09:29 Lipitor - PO 20 mg DAILY KEITH Administration Heparin Sodium (Porcine) 5,000 unit 02/26/18 22:00 02/27/18 06:00 Heparin - SQ 5,000 unit TID KEITH Administration Losartan Potassium 25 mg 02/26/18 10:30 02/27/18 09:29 Cozaar - PO 25 mg DAILY KEITH Administration Methylprednisolone Sodium Succinate 40 mg 02/26/18 15:15 02/27/18 09:29 Solu-Medrol - IVPUSH 40 mg Q8H-IV KEITH Administration Objective: Vital Signs Period Temp Pulse Resp BP Sys/Carrera Pulse Ox Last 24 Hr 98.3 F-98.9 F 90-116 16-20 133-162/58-96 93-98 Physical Exam: General: NAD, A&Ox3, morbid obesity Lungs: B/l end expiratory wheezing Heart: RRR, S1S2 Abd: Soft, non-tender, non-distended. Normoactive bowel sounds Ext: Warm, well-perfused. Dry skin Neuro: CN 2-12 intact CBCD WBC 9.9 K/mm3 (4.0-10.0) 02/27/18 07:45 RBC 4.73 M/mm3 (4.00-5.60) 02/27/18 07:45 Hgb 13.4 GM/dL (11.7-16.9) 02/27/18 07:45 Hct 40.3 % (35.4-49) 02/27/18 07:45 MCV 85.2 fl (80-96) 02/27/18 07:45 MCHC 33.3 g/dl (32.0-35.9) 02/27/18 07:45 RDW 14.8 % (11.9-15.9) 02/27/18 07:45 Plt Count 241 K/MM3 (134-434) 02/27/18 07:45 MPV 10.2 fl (7.5-11.1) 02/27/18 07:45 CMP Sodium 135 mmol/L (136-145) L 02/27/18 07:45 Potassium 4.6 mmol/L (3.5-5.1) 02/27/18 07:45 Chloride 103 mmol/L (98-107) 02/27/18 07:45 Carbon Dioxide 24 mmol/L (21-32) 02/27/18 07:45 Anion Gap 8 (8-16) 02/27/18 07:45 BUN 18 mg/dL (7-18) 02/27/18 07:45 Creatinine 1.4 mg/dL (0.7-1.3) H 02/27/18 07:45 Creat Clearance w eGFR 57.34 (>60) 02/27/18 07:45 Random Glucose 144 mg/dL (74-106) H 02/27/18 07:45 Calcium 9.3 mg/dL (8.5-10.1) 02/27/18 07:45 Total Bilirubin 0.6 mg/dL (0.2-1.0) 02/27/18 07:45 AST 17 U/L (15-37) 02/27/18 07:45 ALT 25 U/L (12-78) 02/27/18 07:45 Alkaline Phosphatase 89 U/L (45-117) 02/27/18 07:45 Total Protein 8.2 g/dl (6.4-8.2) 02/27/18 07:45 Albumin 3.8 g/dl (3.4-5.0) 02/27/18 07:45 CARDIAC ENZYMES Creatine Kinase 692 IU/L (39-308) H 02/27/18 01:45 Troponin I < 0.02 ng/ml (0.00-0.05) 02/27/18 01:45 Microbiology 02/26/18 15:50 Nasopharyngeal Swab Influenza Types A,B Antigen (YADIRA) - Final 02/26/18 15:50 Nasopharyngeal Swab - Final Assessment: This is a 37 year old male with PMHx of MRSA (lower lip), left arm surgery (from football injury), HTN, hyperlipidemia who presented to the ED with shortness of breath, cough with yellow sputum, chest tightness, crackles, wheezing since Tuesday morning (yesterday). Plan: 1) Acute asthma exacerbation - Patient denies a history of asthma - Duonebs q4h prn - Solu-medrol 40mg q8h - Appreciate pulmonary consult 2) Shortness of breath - Chest CTA with no acute process. Limited, but no evidence of PE 3) Chest tightness - Trop x3 negative - EKG with ST changes in II, III, avF - ECHO 2016 with severe concentric left ventricular hypertrophy - F/u ECHO - Appreciate cardiology consult 4) HTN - Optimize BP - Norvasc 10mg po daily - Losartan on hold / DENISSE 5) DENISSE - Last Cr in 2016 was 1 - F/u urine electrolytes 6) Hyperlipidemia - Continue statin 7) F/E/N: - Sodium controlled diet - Monitor electrolytes 8) Prophylaxis: - Heparin 5,000u sq tid - OOB ambulating 9) Dispo: - Requires continued inpatient care CODE STATUS: FULL CODE Visit type - Emergency Visit Emergency Visit: Yes ED Registration Date: 02/26/18 Care time: The patient presented to the Emergency Department on the above date and was hospitalized for further evaluation of their emergent condition. - New Patient This patient is new to me today: No - Critical Care Critical Care patient: No
--- NOTE | 2018-02-27 12:19 | PN ---
Progress Note, Physician History of Present Illness: PULMONARY ALERT,FEELING BETTER,LESS DYSPEIC,LESS WHEEZES - Current Medication List Current Medications: Active Medications Albuterol/Ipratropium (Duoneb -) 1 amp NEB Q4H PRN PRN Reason: SHORTNESS OF BREATH Last Admin: 02/27/18 06:19 Dose: 1 amp Amlodipine Besylate (Norvasc -) 10 mg PO DAILY [facility] Last Admin: 02/27/18 09:29 Dose: 10 mg Atorvastatin Calcium (Lipitor -) 20 mg PO DAILY [facility] Last Admin: 02/27/18 09:29 Dose: 20 mg Heparin Sodium (Porcine) (Heparin -) 5,000 unit SQ TID [facility] Last Admin: 02/27/18 06:00 Dose: 5,000 unit Losartan Potassium (Cozaar -) 25 mg PO DAILY [facility] Last Admin: 02/27/18 09:29 Dose: 25 mg Methylprednisolone Sodium Succinate (Solu-Medrol -) 40 mg IVPUSH Q8H-IV [facility] Last Admin: 02/27/18 09:29 Dose: 40 mg - Objective Vital Signs: Vital Signs Temperature 98.4 F 02/27/18 10:00 Pulse Rate 97 H 02/27/18 10:00 Respiratory Rate 18 02/27/18 10:00 Blood Pressure 156/91 02/27/18 10:00 O2 Sat by Pulse Oximetry (%) 92 L 02/27/18 10:00 Constitutional: Yes: Calm, Obese Eyes: Yes: WNL HENT: Yes: WNL Neck: Yes: WNL Cardiovascular: Yes: Regular Rate and Rhythm, S1, S2 Respiratory: Yes: Diminished Gastrointestinal: Yes: Normal Bowel Sounds, Soft, Abdomen, Obese Extremities: Yes: WNL Edema: Yes Labs: CBC, BMP 02/27/18 07:45 02/27/18 07:45 Assessment/Plan Problem List - Problems (1) Abnormal ECG Code(s): R94.31 - ABNORMAL ELECTROCARDIOGRAM [ECG] [EKG] (2) Chest pain Code(s): R07.9 - CHEST PAIN, UNSPECIFIED Qualifiers: Chest pain type: unspecified Qualified Code(s): R07.9 - Chest pain, unspecified (3) Hyperlipidemia Code(s): E78.5 - HYPERLIPIDEMIA, UNSPECIFIED (4) Hypertension Code(s): I10 - ESSENTIAL (PRIMARY) HYPERTENSION Qualifiers: Hypertension type: essential hypertension Qualified Code(s): I10 - Essential (primary) hypertension (5) SOB (shortness of breath) Code(s): R06.02 - SHORTNESS OF BREATH (6) Hypertension Code(s): I10 - ESSENTIAL (PRIMARY) HYPERTENSION (7) Morbid (severe) obesity due to excess calories Code(s): E66.01 - MORBID (SEVERE) OBESITY DUE TO EXCESS CALORIES 8 LIKELY OSAS Assessment/Plan Short course of Medrol BD TX PRN PFTs after D/C Should have sleep study to R/O OSAS after D/C Cardiac workup O2 as needed VTE prophylaxis SLEEP SCREEN BARIATRIC SURGERY EVALUATION DR PEREZ
--- NOTE | 2018-02-27 12:20 | PN ---
Progress Note, Physician History of Present Illness: 37M HTN, HL, asthma presents to ER with one day of dry cough, SOB and "runny nose" Last evening he heard "crackles" when he was breathing and decided to come to ER. Denies palpitations, chest pain. No edema. No PND/orthopnea. No fevers or chills. - Current Medication List Current Medications: Active Medications Albuterol/Ipratropium (Duoneb -) 1 amp NEB Q4H PRN PRN Reason: SHORTNESS OF BREATH Last Admin: 02/27/18 06:19 Dose: 1 amp Amlodipine Besylate (Norvasc -) 10 mg PO DAILY [facility] Last Admin: 02/27/18 09:29 Dose: 10 mg Atorvastatin Calcium (Lipitor -) 20 mg PO DAILY [facility] Last Admin: 02/27/18 09:29 Dose: 20 mg Heparin Sodium (Porcine) (Heparin -) 5,000 unit SQ TID [facility] Last Admin: 02/27/18 06:00 Dose: 5,000 unit Losartan Potassium (Cozaar -) 25 mg PO DAILY [facility] Last Admin: 02/27/18 09:29 Dose: 25 mg Methylprednisolone Sodium Succinate (Solu-Medrol -) 40 mg IVPUSH Q8H-IV [facility] Last Admin: 02/27/18 09:29 Dose: 40 mg - Objective Vital Signs: Vital Signs Temperature 98.4 F 02/27/18 10:00 Pulse Rate 97 H 02/27/18 10:00 Respiratory Rate 18 02/27/18 10:00 Blood Pressure 156/91 02/27/18 10:00 O2 Sat by Pulse Oximetry (%) 92 L 02/27/18 10:00 Eyes: Yes: WNL, Conjunctiva Clear, EOM Intact HENT: Yes: WNL, Atraumatic, Normocephalic Neck: Yes: WNL, Supple, Trachea Midline Cardiovascular: Yes: WNL, Regular Rate and Rhythm Respiratory: Yes: WNL, Regular, CTA Bilaterally Gastrointestinal: Yes: WNL, Normal Bowel Sounds Genitourinary: Yes: WNL Musculoskeletal: Yes: WNL Extremities: Yes: WNL Edema: No Integumentary: Yes: WNL Neurological: Yes: WNL, Alert, Oriented ...Motor Strength: WNL Psychiatric: Yes: WNL Labs: CBC, BMP 02/27/18 07:45 02/27/18 07:45 Assessment/Plan - Problems (1) Dyspnea Code(s): R06.00 - DYSPNEA, UNSPECIFIED Qualifiers: Dyspnea type: shortness of breath Qualified Code(s): R06.02 - Shortness of breath; R06.00 - Dyspnea, unspecified; R06.01 - Orthopnea (2) Abnormal ECG Code(s): R94.31 - ABNORMAL ELECTROCARDIOGRAM [ECG] [EKG] (3) Hypertension Code(s): I10 - ESSENTIAL (PRIMARY) HYPERTENSION Qualifiers: Hypertension type: essential hypertension Qualified Code(s): I10 - Essential (primary) hypertension (4) Asthma Code(s): J45.909 - UNSPECIFIED ASTHMA, UNCOMPLICATED Qualifiers: Asthma severity: mild Asthma complication type: uncomplicated (5) Dilated aortic root Code(s): I77.810 - THORACIC AORTIC ECTASIA (6) Hyperlipidemia Code(s): E78.5 - HYPERLIPIDEMIA, UNSPECIFIED Assessment/Plan IMP: Dyspnea in setting of URI sx, probable acute exacerbation of asthma Moderate chronic uncontrolled HTN Abnl ECG- LVH, hypertensive heart disease History of mildly dilated ascending aorta REC: 1. F/u CTA to rule out PE, assess for infiltrates, f/u aortic diameter 2. Serial cardiac enzymes 3. Echo (has h/o severe LVH on echo 2015, likely cause of chronic diffuse ST/T changes). 4. Optimize BP regimen: increase amlodipine to 10mg daily, cont. Losartan. Would add HCTZ if creatinine stable. 5. no evidence of CHF since BNP normal.
--- NOTE | 2018-02-27 12:27 | EKG ---
Test Reason : Blood Pressure : / mmHG Vent. Rate : 116 BPM Atrial Rate : 116 BPM P-R Int : 132 ms QRS Dur : 098 ms QT Int : 340 ms P-R-T Axes : 068 088 -14 degrees QTc Int : 472 ms SINUS TACHYCARDIA T WAVE ABNORMALITY, CONSIDER INFERIOR ISCHEMIA ABNORMAL ECG WHEN COMPARED WITH ECG OF 28-MAY-2016 12:38, T WAVE INVERSION MORE EVIDENT IN INFERIOR LEADS Confirmed by LC MCGRATH MD ([id number]) on 02/27/2018 12:27:42 PM Referred By: Confirmed By:LC MCGRATH MD
--- NOTE | 2018-02-27 13:12 | PN ---
Progress Note (short form) - Note Progress Note: Bariatric Surgery - Dr. Snyder 37yo morbidly obese male admitted with SOB and chest tightness. Dr. Snyder consulted for discussion regarding bariatric surgery. Patient informed to follow-up with Dr. Snyder as out-patient. Information placed in his DISCHARGE PLAN. Cont medical management. NO SURGICAL INTERVENTION. Dr. Snyder made aware and agrees Problem List - Problems (1) Morbid (severe) obesity due to excess calories Assessment/Plan: Patient to f/u with [facility] Code(s): E66.01 - MORBID (SEVERE) OBESITY DUE TO EXCESS CALORIES (2) SOB (shortness of breath) Assessment/Plan: Cont care as per Pulmonary and Medical collaboration. Code(s): R06.02 - SHORTNESS OF BREATH
[2018-02-28] MEDS: methylPREDNISolone NA SUCC 40 MG/1 ML VIAL IVPUSH SCH ×3 (01:21→21:08)
[2018-02-28] MEDS: HEPARIN NA (PORCINE) 5,000 UNITS/ML 1ML VIAL SQ SCH ×3 (05:14→21:08)
[2018-02-28 07:15] LABS: ALBUMIN 3.5 g/dl (3.4-5.0); ANION GAP 8 (8-16); BILIRUBIN,TOTAL 0.3 mg/dL (0.2-1.0); BLOOD UREA NITROGEN 23 mg/dL (7-18); CHLORIDE 103 mmol/L (98-107); CO2 26 mmol/L (21-32); CREATININE 1.4 mg/dL (0.7-1.3); GLUCOSE,RANDOM 139 mg/dL (74-106); POTASSIUM 4.5 mmol/L (3.5-5.1); SGOT/AST 11 U/L (15-37); SGPT/ALT 22 U/L (12-78); SODIUM 137 mmol/L (136-145); TOT PROT 7.6 g/dl (6.4-8.2)
[2018-02-28 07:16] LABS: ALK PHOS 74 U/L (45-117)
[2018-02-28] MEDS: ATORVASTATIN CA 20 MG TABLET (FP) PO SCH (09:36)
[2018-02-28] MEDS: amLODIPine BESYLATE 10 MG TABLET (FP) PO SCH (09:36)
--- NOTE | 2018-02-28 10:16 | CONSULT ---
Consult Consult Specialty:: Bariatric surgery Reason for Consultation:: Morbid obesity - History Source History Provided By: Patient - Past Medical History Cardio/Vascular: Yes: HTN, Hyperlipdemia Pulmonary: Yes: Asthma Gastrointestinal: No: Ascites, Cancer, Constipation, Crohn's Disease, Diverticulitis, Diverticulosis, Esophageal Varices, Gastritis, GERD, GI Bleed, Hemorrhoids, Hiatal Hernia, Inflamatory Bowel Disease, Irritable Bowel Disease, Pancreatitis, Peptic Ulcer Disease, Ulcerative Colitis, Other Hepatobiliary: No: Cirrhosis, Cholelithiasis, Cholecystitis, Choledocholithiasis , Hepatitis A, Hepatitis B, Hepatitis C, Other Renal/: No: Renal Failure, Renal Inusuff, BPH, Cancer, Hematuria, Hemodialysis , Neurogenic Bladder, Renal Calculi, UTI, Other Infectious Disease: No: AIDS, C-Diff, Herpes Zoster, HIV, MRSA, STD's, Tuberculosis, VREF, Other Musculoskeletal: Yes: Other (right elbow injury in ) ENT: No: Allergic Rhinitis, Sinusitis, Other Endocrine: No: [place]'s Disease, [place]'s Disease, Diabetes Insipidus, Diabetes Mellitus, Hyperparathyroidism, Hyperthyroidism, Hypothyroidism, Osteopenia, SIADH, Other - Past Surgical History Past Surgical History: No: None, AAA Repair, AICD, Amputation, Appendectomy, Arthrosocopy, AV Fistula/Graft, Bariatric Surgery, Breast Biopsy, Bypass, CABG, Carotid Endarterectomy, Cataract Removal, Cholecystectomy, Colectomy, Colonoscopy, Colostomy, Craniotomy, , Cystectomy, Hernia Repair, Hysterectomy, Ileal Conduit, Ileosotomy, Joint Replacement, Kidney Transplant, Laminectomy, Liver Transplant, Mastectomy, Nephrectomy, Oopherectomy, Orchiectomy, Permanent Pacemaker, Prostatectomy, Splenectomy, Stent, Thoracotomy , TURP, Tonsillectomy, Tubal Ligation, Upper Endoscopy, Valve Replacement, Vasectomy, Vein Stripping/Ligation - Alcohol/Substance Use Hx Alcohol Use: No History of Substance Use: reports: None - Smoking History Smoking history: Never smoked Have you smoked in the past 12 months: No - Social History Usual Living Arrangement: Other (with family) Occupation: works for [employer] History of Recent Travel: No Home Medications - Allergies Allergies/Adverse Reactions: Allergies Allergy/AdvReac Type Severity Reaction Status Date / Time shellfish derived Allergy Difficulty Verified 02/26/18 06:49 Breathing - Home Medications Home Medications: Ambulatory Orders Amlodipine Besylate [Norvasc -] 10 mg PO DAILY 02/26/18 Doxazosin Mesylate [Cardura -] 4 mg PO DAILY 02/26/18 Ergocalciferol (Vitamin D2) [Vitamin D2] 50,000 unit PO WEEKLY 02/26/18 Losartan/Hydrochlorothiazide [Losartan-Hctz 100-25 mg Tab] 1 each PO DAILY 02/26 Simvastatin 40 mg PO DAILY 02/26/18 Family Disease History - Family Disease History Family History: Denies Family Disease History: Other: Mother (HTN) Review of Systems - Review of Systems Constitutional: denies: Chills, Fever Neck: reports: No Symptoms Gastrointestinal: reports: No Symptoms Neurological: denies: Change in LOC Physical Exam Vital Signs: Vital Signs Temperature 98.2 F 02/28/18 10:00 Pulse Rate 96 H 02/28/18 10:00 Respiratory Rate 18 02/28/18 10:00 Blood Pressure 161/99 02/28/18 10:00 O2 Sat by Pulse Oximetry (%) 95 02/28/18 10:00 Respiratory: Yes: WNL Gastrointestinal: Yes: Soft, Abdomen, Obese. No: Tenderness Neurological: Yes: Alert, Oriented Labs: CBC, BMP 02/27/18 07:45 02/28/18 05:35 Problem List - Problems (1) Morbid obesity due to excess calories Code(s): E66.01 - MORBID (SEVERE) OBESITY DUE TO EXCESS CALORIES Assessment/Plan Morbid obesity BMI 46.2 Follow up in office for bariatric surgery consult [phone] Thank you
--- NOTE | 2018-02-28 10:32 | PN ---
Progress Note, Physician History of Present Illness: 37M HTN, HL, asthma presents to ER with one day of dry cough, SOB and "runny nose" Last evening he heard "crackles" when he was breathing and decided to come to ER. Denies palpitations, chest pain. No edema. No PND/orthopnea. No fevers or chills. - Current Medication List Current Medications: Active Medications Albuterol/Ipratropium (Duoneb -) 1 amp NEB Q4H PRN PRN Reason: SHORTNESS OF BREATH Last Admin: 02/27/18 15:50 Dose: 1 amp Amlodipine Besylate (Norvasc -) 10 mg PO DAILY [facility] Last Admin: 02/28/18 09:36 Dose: 10 mg Atorvastatin Calcium (Lipitor -) 20 mg PO DAILY [facility] Last Admin: 02/28/18 09:36 Dose: 20 mg Heparin Sodium (Porcine) (Heparin -) 5,000 unit SQ TID [facility] Last Admin: 02/28/18 05:14 Dose: 5,000 unit Losartan Potassium (Cozaar -) 25 mg PO DAILY [facility] Last Admin: 02/27/18 09:29 Dose: 25 mg Methylprednisolone Sodium Succinate (Solu-Medrol -) 40 mg IVPUSH Q8H-IV [facility] Last Admin: 02/28/18 09:36 Dose: 40 mg - Objective Vital Signs: Vital Signs Temperature 98.2 F 02/28/18 10:00 Pulse Rate 96 H 02/28/18 10:00 Respiratory Rate 18 02/28/18 10:00 Blood Pressure 161/99 02/28/18 10:00 O2 Sat by Pulse Oximetry (%) 95 02/28/18 10:00 Eyes: Yes: WNL, Conjunctiva Clear, EOM Intact HENT: Yes: WNL, Atraumatic, Normocephalic Neck: Yes: WNL, Supple, Trachea Midline Cardiovascular: Yes: WNL, Regular Rate and Rhythm Respiratory: Yes: WNL, Regular, CTA Bilaterally Gastrointestinal: Yes: WNL, Normal Bowel Sounds Genitourinary: Yes: WNL Musculoskeletal: Yes: WNL Extremities: Yes: WNL Edema: No Integumentary: Yes: WNL Neurological: Yes: WNL, Alert, Oriented ...Motor Strength: WNL Psychiatric: Yes: WNL Labs: CBC, BMP 02/27/18 07:45 02/28/18 05:35 Assessment/Plan - Problems (1) Dyspnea Code(s): R06.00 - DYSPNEA, UNSPECIFIED Qualifiers: Dyspnea type: shortness of breath Qualified Code(s): R06.02 - Shortness of breath; R06.00 - Dyspnea, unspecified; R06.01 - Orthopnea (2) Abnormal ECG Code(s): R94.31 - ABNORMAL ELECTROCARDIOGRAM [ECG] [EKG] (3) Hypertension Code(s): I10 - ESSENTIAL (PRIMARY) HYPERTENSION Qualifiers: Hypertension type: essential hypertension Qualified Code(s): I10 - Essential (primary) hypertension (4) Asthma Code(s): J45.909 - UNSPECIFIED ASTHMA, UNCOMPLICATED Qualifiers: Asthma severity: mild Asthma complication type: uncomplicated (5) Dilated aortic root Code(s): I77.810 - THORACIC AORTIC ECTASIA (6) Hyperlipidemia Code(s): E78.5 - HYPERLIPIDEMIA, UNSPECIFIED Assessment/Plan IMP: Dyspnea in setting of URI sx, probable acute exacerbation of asthma Moderate chronic uncontrolled HTN Abnl ECG- LVH, hypertensive heart disease History of mildly dilated ascending aorta REC: 1. F/u CTA to rule out PE, assess for infiltrates, f/u aortic diameter 2. Serial cardiac enzymes 3. Echo (has h/o severe LVH on echo 2016, likely cause of chronic diffuse ST/T changes). 4. Optimize BP regimen: increase amlodipine to 10mg daily, cont. Losartan. Would add HCTZ if creatinine stable. 5. no evidence of CHF since BNP normal.
--- NOTE | 2018-02-28 12:55 | PN ---
Progress Note (short form) - Note Progress Note: Subjective: The patient was seen and examined at the bedside, he reports feeling better today. Decreased steroids to bid Current Medications Generic Name Dose Route Start Last Admin Trade Name Maria Fernanda PRN Reason Stop Dose Admin Albuterol/Ipratropium 1 amp 02/26/18 15:04 02/27/18 15:50 Duoneb - NEB 1 amp Q4H PRN Administration SHORTNESS OF BREATH Amlodipine Besylate 10 mg 02/26/18 10:30 02/28/18 09:36 Norvasc - PO 10 mg DAILY KEITH Administration Atorvastatin Calcium 20 mg 02/27/18 10:00 02/28/18 09:36 Lipitor - PO 20 mg DAILY KEITH Administration Heparin Sodium (Porcine) 5,000 unit 02/26/18 22:00 02/28/18 05:14 Heparin - SQ 5,000 unit TID KEITH Administration Losartan Potassium 25 mg 02/26/18 10:30 02/27/18 09:29 Cozaar - PO 25 mg DAILY KEITH Administration Methylprednisolone Sodium Succinate 40 mg 02/28/18 22:00 Solu-Medrol - IVPUSH BID KEITH Objective: Vital Signs Period Temp Pulse Resp BP Sys/Carrera Pulse Ox Last 24 Hr 97.7 F-98.8 F 93-112 18-20 113-161/54-99 95-96 Physical Exam: General: NAD, A&Ox3, morbid obesity Lungs: B/l end expiratory wheezing Heart: RRR, S1S2 Abd: Soft, non-tender, non-distended. Normoactive bowel sounds Ext: Warm, well-perfused. Dry skin Neuro: CN 2-12 intact CBCD WBC 9.9 K/mm3 (4.0-10.0) 02/27/18 07:45 RBC 4.73 M/mm3 (4.00-5.60) 02/27/18 07:45 Hgb 13.4 GM/dL (11.7-16.9) 02/27/18 07:45 Hct 40.3 % (35.4-49) 02/27/18 07:45 MCV 85.2 fl (80-96) 02/27/18 07:45 MCHC 33.3 g/dl (32.0-35.9) 02/27/18 07:45 RDW 14.8 % (11.9-15.9) 02/27/18 07:45 Plt Count 241 K/MM3 (134-434) 02/27/18 07:45 MPV 10.2 fl (7.5-11.1) 02/27/18 07:45 CMP Sodium 137 mmol/L (136-145) 02/28/18 05:35 Potassium 4.5 mmol/L (3.5-5.1) 02/28/18 05:35 Chloride 103 mmol/L (98-107) 02/28/18 05:35 Carbon Dioxide 26 mmol/L (21-32) 02/28/18 05:35 Anion Gap 8 (8-16) 02/28/18 05:35 BUN 23 mg/dL (7-18) H D 02/28/18 05:35 Creatinine 1.4 mg/dL (0.7-1.3) H 02/28/18 05:35 Creat Clearance w eGFR 57.34 (>60) 02/28/18 05:35 Random Glucose 139 mg/dL (74-106) H 02/28/18 05:35 Calcium 9.0 mg/dL (8.5-10.1) 02/28/18 05:35 Total Bilirubin 0.3 mg/dL (0.2-1.0) D 02/28/18 05:35 AST 11 U/L (15-37) L D 02/28/18 05:35 ALT 22 U/L (12-78) 02/28/18 05:35 Alkaline Phosphatase 74 U/L (45-117) 02/28/18 05:35 Total Protein 7.6 g/dl (6.4-8.2) 02/28/18 05:35 Albumin 3.5 g/dl (3.4-5.0) 02/28/18 05:35 CARDIAC ENZYMES Creatine Kinase 442 IU/L (39-308) H 02/28/18 05:35 Troponin I < 0.02 ng/ml (0.00-0.05) 02/27/18 01:45 Microbiology 02/26/18 15:50 Nasopharyngeal Swab Influenza Types A,B Antigen (YADIRA) - Final 02/26/18 15:50 Nasopharyngeal Swab - Final Assessment: This is a 37 year old male with PMHx of MRSA (lower lip), left arm surgery (from football injury), HTN, hyperlipidemia who presented to the ED with shortness of breath, cough with yellow sputum, chest tightness, crackles, wheezing since Tuesday morning (yesterday). Plan: 1) Acute asthma exacerbation - Patient denies a history of asthma - Duonebs q4h prn - Solu-medrol 40mg bid - Appreciate pulmonary consult 2) Shortness of breath - Chest CTA with no acute process. Limited, but no evidence of PE 3) Chest tightness - Trop x3 negative - EKG with ST changes in II, III, avF - ECHO 2016 with severe concentric left ventricular hypertrophy - ECHO reviewed - Appreciate cardiology consult 4) HTN - Optimize BP - Norvasc 10mg po daily - Losartan on hold / DENISSE 5) DENISSE - Last Cr in 2016 was 1 - F/u urine electrolytes 6) Hyperlipidemia - Continue statin 7) F/E/N: - Sodium controlled diet - Monitor electrolytes 8) Prophylaxis: - Heparin 5,000u sq tid - OOB ambulating 9) Dispo: - Requires continued inpatient care CODE STATUS: FULL CODE Visit type - Emergency Visit Emergency Visit: Yes ED Registration Date: 02/27/18 Care time: The patient presented to the Emergency Department on the above date and was hospitalized for further evaluation of their emergent condition. - New Patient This patient is new to me today: No - Critical Care Critical Care patient: No
--- NOTE | 2018-02-28 13:56 | PN ---
Progress Note (short form) - Note Progress Note: PULMONARY States breathing is better. Still some nonproductive cough or wheezing. Last Vital Signs Temp Pulse Resp BP Pulse Ox 98.2 F 96 H 18 161/99 95 02/28/18 10:00 02/28/18 10:00 02/28/18 10:00 02/28/18 10:00 02/28/18 10:00 Gen: NAD at rest Heart: RRR Lung: scattered wheezes Abd: soft, nontender Ext: no edema CBC, BMP 02/27/18 07:45 02/28/18 05:35 Active Medications Albuterol/Ipratropium (Duoneb -) 1 amp NEB Q4H PRN PRN Reason: SHORTNESS OF BREATH Last Admin: 02/27/18 15:50 Dose: 1 amp Amlodipine Besylate (Norvasc -) 10 mg PO DAILY [facility] Last Admin: 02/28/18 09:36 Dose: 10 mg Atorvastatin Calcium (Lipitor -) 20 mg PO DAILY [facility] Last Admin: 02/28/18 09:36 Dose: 20 mg Heparin Sodium (Porcine) (Heparin -) 5,000 unit SQ TID [facility] Last Admin: 02/28/18 13:41 Dose: 5,000 unit Losartan Potassium (Cozaar -) 25 mg PO DAILY [facility] Last Admin: 02/27/18 09:29 Dose: 25 mg Methylprednisolone Sodium Succinate (Solu-Medrol -) 40 mg IVPUSH BID [facility] A/P Acute Asthma Exacerbation Morbid Obesity HTN Hyperlipidemia - can change steroids to PO in AM - inhaled bronchodilators - monitor peak flow - outpt PFTs and PSG
[2018-02-28] MEDS: ALBUTEROL SO4 2.5/IPRATROPIUM 0.5 INH SOL 3 ML VIAL.NEB. NEB PRN (21:12)
[2018-03-01] MEDS: HEPARIN NA (PORCINE) 5,000 UNITS/ML 1ML VIAL SQ SCH ×2 (05:58→14:03)
[2018-03-01 08:04] LABS: ANION GAP 8 (8-16); BLOOD UREA NITROGEN 25 mg/dL (7-18); CALCIUM 8.9 mg/dL (8.5-10.1); CHLORIDE 104 mmol/L (98-107); CO2 27 mmol/L (21-32); CREATININE 1.4 mg/dL (0.7-1.3); GLUCOSE,RANDOM 134 mg/dL (74-106); POTASSIUM 4.9 mmol/L (3.5-5.1); SODIUM 139 mmol/L (136-145)
[2018-03-01] MEDS: ALBUTEROL SO4 2.5/IPRATROPIUM 0.5 INH SOL 3 ML VIAL.NEB. NEB PRN ×2 (08:38→12:07)
[2018-03-01] MEDS: amLODIPine BESYLATE 10 MG TABLET (FP) PO SCH (09:25)
[2018-03-01] MEDS: LOSARTAN POTASSIUM 25 MG TABLET PO SCH (09:25)
[2018-03-01] MEDS: methylPREDNISolone NA SUCC 40 MG/1 ML VIAL IVPUSH SCH (09:25)
[2018-03-01] MEDS: ATORVASTATIN CA 20 MG TABLET (FP) PO SCH (09:25)
[2018-03-01 10:30] VITALS: TEMP 97.6
--- NOTE | 2018-03-01 11:04 | PN ---
Progress Note, Physician History of Present Illness: 37M HTN, HL, asthma presents to ER with one day of dry cough, SOB and "runny nose" Last evening he heard "crackles" when he was breathing and decided to come to ER. Denies palpitations, chest pain. No edema. No PND/orthopnea. No fevers or chills. - Current Medication List Current Medications: Active Medications Albuterol/Ipratropium (Duoneb -) 1 amp NEB Q4H PRN PRN Reason: SHORTNESS OF BREATH Last Admin: 03/01/18 08:38 Dose: 1 amp Amlodipine Besylate (Norvasc -) 10 mg PO DAILY [facility] Last Admin: 03/01/18 09:25 Dose: 10 mg Atorvastatin Calcium (Lipitor -) 20 mg PO DAILY [facility] Last Admin: 03/01/18 09:25 Dose: 20 mg Heparin Sodium (Porcine) (Heparin -) 5,000 unit SQ TID [facility] Last Admin: 03/01/18 05:58 Dose: 5,000 unit Losartan Potassium (Cozaar -) 25 mg PO DAILY [facility] Last Admin: 03/01/18 09:25 Dose: 25 mg Methylprednisolone Sodium Succinate (Solu-Medrol -) 40 mg IVPUSH BID [facility] Last Admin: 03/01/18 09:25 Dose: 40 mg - Objective Vital Signs: Vital Signs Temperature 97.6 F 03/01/18 10:00 Pulse Rate 95 H 03/01/18 10:00 Respiratory Rate 18 03/01/18 10:00 Blood Pressure 152/100 03/01/18 10:00 O2 Sat by Pulse Oximetry (%) 95 03/01/18 10:00 Eyes: Yes: WNL, Conjunctiva Clear, EOM Intact HENT: Yes: WNL, Atraumatic, Normocephalic Neck: Yes: WNL, Supple, Trachea Midline Cardiovascular: Yes: WNL, Regular Rate and Rhythm Respiratory: Yes: WNL, Regular, CTA Bilaterally Gastrointestinal: Yes: WNL, Normal Bowel Sounds Genitourinary: Yes: WNL Musculoskeletal: Yes: WNL Extremities: Yes: WNL Edema: No Integumentary: Yes: WNL Neurological: Yes: WNL, Alert, Oriented ...Motor Strength: WNL Psychiatric: Yes: WNL Labs: CBC, BMP 02/27/18 07:45 03/01/18 07:05 Assessment/Plan - Problems (1) Dyspnea Code(s): R06.00 - DYSPNEA, UNSPECIFIED Qualifiers: Dyspnea type: shortness of breath Qualified Code(s): R06.02 - Shortness of breath; R06.00 - Dyspnea, unspecified; R06.01 - Orthopnea (2) Abnormal ECG Code(s): R94.31 - ABNORMAL ELECTROCARDIOGRAM [ECG] [EKG] (3) Hypertension Code(s): I10 - ESSENTIAL (PRIMARY) HYPERTENSION Qualifiers: Hypertension type: essential hypertension Qualified Code(s): I10 - Essential (primary) hypertension (4) Asthma Code(s): J45.909 - UNSPECIFIED ASTHMA, UNCOMPLICATED Qualifiers: Asthma severity: mild Asthma complication type: uncomplicated (5) Dilated aortic root Code(s): I77.810 - THORACIC AORTIC ECTASIA (6) Hyperlipidemia Code(s): E78.5 - HYPERLIPIDEMIA, UNSPECIFIED Assessment/Plan IMP: Dyspnea in setting of URI sx, probable acute exacerbation of asthma Moderate chronic uncontrolled HTN Abnl ECG- LVH, hypertensive heart disease History of mildly dilated ascending aorta REC: Optimize BP regimen: increase amlodipine to 10mg daily, cont. Losartan. Would add HCTZ if creatinine stable. no evidence of CHF since BNP normal.
--- NOTE | 2018-03-01 12:02 | PN ---
Progress Note, Physician History of Present Illness: pulmonary alert,feeling better,less dyspneic.AHI 6.5 - Current Medication List Current Medications: Active Medications Albuterol/Ipratropium (Duoneb -) 1 amp NEB Q4H PRN PRN Reason: SHORTNESS OF BREATH Last Admin: 03/01/18 08:38 Dose: 1 amp Amlodipine Besylate (Norvasc -) 10 mg PO DAILY [facility] Last Admin: 03/01/18 09:25 Dose: 10 mg Atorvastatin Calcium (Lipitor -) 20 mg PO DAILY [facility] Last Admin: 03/01/18 09:25 Dose: 20 mg Heparin Sodium (Porcine) (Heparin -) 5,000 unit SQ TID [facility] Last Admin: 03/01/18 05:58 Dose: 5,000 unit Methylprednisolone Sodium Succinate (Solu-Medrol -) 40 mg IVPUSH BID [facility] Last Admin: 03/01/18 09:25 Dose: 40 mg - Objective Vital Signs: Vital Signs Temperature 97.6 F 03/01/18 10:00 Pulse Rate 95 H 03/01/18 10:00 Respiratory Rate 18 03/01/18 10:00 Blood Pressure 152/100 03/01/18 10:00 O2 Sat by Pulse Oximetry (%) 95 03/01/18 10:00 Constitutional: Yes: Calm, Obese Eyes: Yes: WNL HENT: Yes: WNL Neck: Yes: WNL Cardiovascular: Yes: Regular Rate and Rhythm, S1, S2 Respiratory: Yes: Wheezes (FEW SCATTERED WHEEZES) Gastrointestinal: Yes: Normal Bowel Sounds, Soft Extremities: Yes: WNL Edema: Yes Labs: CBC, BMP 02/27/18 07:45 03/01/18 07:05 Assessment/Plan Problem List - Problems (1) Abnormal ECG Code(s): R94.31 - ABNORMAL ELECTROCARDIOGRAM [ECG] [EKG] (2) Chest pain Code(s): R07.9 - CHEST PAIN, UNSPECIFIED Qualifiers: Chest pain type: unspecified Qualified Code(s): R07.9 - Chest pain, unspecified (3) Hyperlipidemia Code(s): E78.5 - HYPERLIPIDEMIA, UNSPECIFIED (4) Hypertension Code(s): I10 - ESSENTIAL (PRIMARY) HYPERTENSION Qualifiers: Hypertension type: essential hypertension Qualified Code(s): I10 - Essential (primary) hypertension (5) SOB (shortness of breath) Code(s): R06.02 - SHORTNESS OF BREATH (6) Hypertension Code(s): I10 - ESSENTIAL (PRIMARY) HYPERTENSION (7) Morbid (severe) obesity due to excess calories Code(s): E66.01 - MORBID (SEVERE) OBESITY DUE TO EXCESS CALORIES 8 LIKELY OSAS AHI 6.5 Assessment/Plan PREDNISONE BD TX PRN PFTs after D/C sleep study outpatient Cardiac workup O2 as needed VTE prophylaxis DR PEREZ
[2018-03-01] MEDS ORDERED: HYDROCHLOROTHIAZIDE 25 MG TABLET (FP) PO ONE (12:03)
--- NOTE | 2018-03-01 13:03 | DS ---
Physical Examination Vital Signs: Vital Signs Temperature 97.6 F 03/01/18 10:00 Pulse Rate 95 H 03/01/18 10:00 Respiratory Rate 18 03/01/18 10:00 Blood Pressure 152/100 03/01/18 10:00 O2 Sat by Pulse Oximetry (%) 95 03/01/18 10:00 Labs: CBC, BMP 02/27/18 07:45 03/01/18 07:05 Discharge Summary Reason For Visit: SHORTNESS OF BREATH; CHEST PAIN; ABNORMAL EKG Current Active Problems Abnormal ECG (Acute) Asthma (Acute) Chest pain (Acute) Dilated aortic root (Acute) Dyspnea (Acute) Hyperlipidemia (Acute) Hypertension (Acute) Morbid obesity due to excess calories (Acute) SOB (shortness of breath) (Acute) Hospital Course: Spoke to pcp office, patients baseline Cr ~1.25 Condition: Stable - Instructions Diet, Activity, Other Instructions: Please return to the ED with new, persistent, or worsening symptoms. Please follow-up with providers as indicated. Referrals: Ubaldo Snyder MD [Staff Physician] - (Please follow-up with Dr. Snyder to dicuss bariatric surgery options.) Allan Mederos MD [Staff Physician] - (Please follow-up with Dr. Mederos within 1 week as an outpatient to schedule outpatient PFTs and PSGs and to schedule a sleep study.) Dusty Butler MD [Staff Physician] - (Please follow-up with Dr. Butler within 2-3 days for further management of your high blood pressure and left ventricular hypertrophy) Henri Iglesias MD [Primary Care Provider] - (Please follow-up with your primary care physician for further management of your chronic kidney disease and hypertension. You have an appointment scheduled on Wednesday 03/07 at 1pm.) - Home Medications Comprehensive Discharge Medication List: Ambulatory Orders Amlodipine Besylate [Norvasc -] 10 mg PO DAILY 02/26/18 Ergocalciferol (Vitamin D2) [Vitamin D2] 50,000 unit PO WEEKLY 02/26/18 Losartan/Hydrochlorothiazide [Losartan-Hctz 100-25 mg Tab] 1 each PO DAILY 02/26 Simvastatin 40 mg PO DAILY 02/26/18 Albuterol Sulfate Inhaler - [Ventolin HFA Inhaler -] 1 - 2 inh PO Q4H PRN #1 inhaler 03/01/18 Amlodipine Besylate [Norvasc -] 10 mg PO DAILY #30 tablet 03/01/18 Prednisone 10 mg PO ASDIR #48 tablet 03/01/18
[2018-03-01 13:55] VITALS: BP 155/76; PULSE 105
[2018-03-02] MEDS ORDERED: predniSONE 20 MG TABLET (UD) PO SCH (10:00)
== END 2018-03-01 14:41 | disposition home or self-care (01) | DRG 141 ==
LOC: JER 06:28 → JERBED 10:47 → J4S 14:00 → OBSVTOIN 02-27 13:55
PROVIDERS: ADMIT Internal Medicine; ATTEND Registered Nurse
DX: J45.901 Unspecified asthma with (acute) exacerbation (principal); I10 Essential (primary) hypertension; E78.5 Hyperlipidemia, unspecified; R94.31 Abnormal electrocardiogram [ECG] [EKG]; I77.810 Thoracic aortic ectasia; R07.89 Other chest pain; E66.01 Morbid (severe) obesity due to excess calories; Z68.42 Body mass index [BMI] 45.0-49.9, adult; N17.9 Acute kidney failure, unspecified; G47.33 Obstructive sleep apnea (adult) (pediatric); R06.02 Shortness of breath; I51.7 Cardiomegaly
CPT/HCPCS: 36415; 71045-TC-FY; 71275-TC; 80048; 80053; 81003; 82436; 82550; 82553; 82570; 83880; 84133; 84300; 84484; 85025; 87081; 87804; 93005; 93010; 93306-TC; 94640; 99284-25; G0378; J1644

== ENCOUNTER 2018-04-05 11:34 | Emergency (ER) | payer OTHER ==
[2018-04-05 11:41] VITALS: BP 180/90; PULSE 115; TEMP 98.4; BMI 46.1
--- NOTE | 2018-04-05 12:52 | PDOC ---
History of Present Illness - General Chief Complaint: Back Pain Stated Complaint: BACK PAIN Time Seen by Provider: 04/05/18 11:58 - History of Present Illness Initial Comments: 37-year-old male with lower back pain and left lateral posterior leg radiculopathy 2 weeks. He denies any loss of bowel or bladder function. He describes his pain as achy and sharp down the leg exacerbated with prolonged sitting minimally relieved with rest. Past medical significant for hypertension 04/05/18 12:48 Past History - Past Medical History Allergies/Adverse Reactions: Allergies Allergy/AdvReac Type Severity Reaction Status Date / Time shellfish derived Allergy Difficulty Verified 02/26/18 06:49 Breathing Home Medications: Ambulatory Orders Ergocalciferol (Vitamin D2) [Vitamin D2] 50,000 unit PO WEEKLY 02/26/18 Losartan/Hydrochlorothiazide [Losartan-Hctz 100-25 mg Tab] 1 each PO DAILY 02/26 Simvastatin 40 mg PO DAILY 02/26/18 Amlodipine Besylate [Norvasc -] 10 mg PO DAILY #30 tablet 03/01/18 Prednisone 10 mg PO ASDIR #48 tablet 03/01/18 Cyclobenzaprine HCl [Flexeril -] 10 mg PO TID 04/05/18 Ibuprofen [Motrin -] 400 mg PO QID 04/05/18 Methylprednisolone [Medrol Dose [place]] 4 mg PO ASDIR #21 tablet 04/05/18 COPD: No HTN: Yes Hypercholesterolemia: Yes - Surgical History Orthopedic Surgery: Yes (bone fragment lodged in rt elbow) - Immunization History Immunization Up to Date: Yes - Suicide/Smoking/Psychosocial Hx Smoking History: Never smoked Have you smoked in the past 12 months: No Information on smoking cessation initiated: No Hx Alcohol Use: No Drug/Substance Use Hx: No Substance Use Type: None Hx Substance Use Treatment: No Review of Systems - Review of Systems Musculoskeletal: Yes: Back Pain All Other Systems: Reviewed and Negative *Physical Exam - Vital Signs Last Vital Signs Temp Pulse Resp BP Pulse Ox 98.4 F 115 H 20 180/90 100 04/05/18 11:37 04/05/18 11:37 04/05/18 11:37 04/05/18 11:37 04/05/18 11:37 - Physical Exam Comments: Lumbar spine skin color and temperature are normal. There is decreased nonpainful range of motion. 5 out of 5 strength in bilateral lower extremities. Patella and Achilles reflexes are 2+ and symmetric bilaterally. There is no clonus. Straight leg raise test is negative bilaterally. Thighs and calves are soft and nontender. There are no gross sensory motor deficits. Neurovascularly intact. 04/05/18 12:49 Medical Decision Making - Medical Decision Making Lumbar radiculopathy in this 37-year-old male. I've advised him to stop the Motrin 800 that he's been taking and start the Medrol Dosepak I prescribed. He is already on Flexeril. I will have him follow-up with spine surgery. 04/05/18 12:50 *DC/Admit/Observation/Transfer Diagnosis at time of Disposition: Lumbar radicular pain - Discharge Dispostion Disposition: HOME Condition at time of disposition: Stable Decision to Admit order: No - Prescriptions Prescriptions: Methylprednisolone [Medrol Dose [place]] 4 mg PO ASDIR #21 tablet - Referrals Referrals: Henri Iglesias MD [Primary Care Provider] - Sergey Prtat MD [Staff Physician] - - Patient Instructions Printed Discharge Instructions: Lumbar Radiculopathy, DI for Lumbar Radiculopathy Additional Instructions: Do not take any more ibuprofen. You may continue the Flexeril as prescribed. I prescribed few steroid pack which should help your pain. It's important few to follow-up with spine surgery in the next week. Return to the emergency room if symptoms worsen or go unresolved prior to follow-up. - Post Discharge Activity
== END 2018-04-05 12:56 | disposition home or self-care (01) ==
LOC: JERFT 11:34
DX: M54.16 Radiculopathy, lumbar region (principal); I10 Essential (primary) hypertension; E78.00 Pure hypercholesterolemia, unspecified
CPT/HCPCS: 99281-25

== ENCOUNTER 2018-10-05 22:38 | Emergency (ER) | payer OTHER ==
[2018-10-05] MEDS ORDERED: ALLOPURINOL 100 MG TABLET (FP) PO ONE (22:41)
--- NOTE | 2018-10-05 22:41 | PDOC ---
Attending Attestation - [facility] HPI: 10/05/18 22:42 The patient is a 38 year old male, with a significant past medical history of hypertension and hyperlipidemia, who presents to the emergency department with sudden onset of right ankle and foot pain which has been progressing since last night. He states he experienced this once in the past which resolved with taking ibuprofen. He reports pain exacerbation with walking. The patient denies chest pain, shortness of breath, headache and dizziness. The patient denies fever, chills, nausea, vomit, diarrhea and constipation. The patient denies dysuria, frequency, urgency and hematuria. Allergies: NKDA - Physicial Exam PE: 10/05/18 22:43 GENERAL: Awake, alert, and fully oriented, in no acute distress HEAD: No signs of trauma EYES: PERRLA, EOMI, sclera anicteric, conjunctiva clear ENT: Auricles normal inspection, hearing grossly normal, nares patent, oropharynx clear without exudates. Moist mucosa NECK: Normal ROM, supple, no lymphadenopathy, JVD, or masses LUNGS: Breath sounds equal, clear to auscultation bilaterally. No wheezes, and no crackles HEART: Regular rate and rhythm, normal S1 and S2, no murmurs, rubs or gallops ABDOMEN: Soft, nontender, normoactive bowel sounds. No guarding, no rebound. No masses EXTREMITIES: (+) slight edema to the dorsal aspect of the right foot laterally with palpable tenderness. There is also tenderness to the base of the 5th metatarsal. Normal range of motion No clubbing or cyanosis. No cords, erythema, NEUROLOGICAL: Cranial nerves II through XII grossly intact. Normal speech, gait unassessed secondary to pain. SKIN: Warm, Dry, normal turgor, no rashes or lesions noted. - Medical Decision Making 10/05/18 22:43 Documentation prepared by Kelsi Mcelroy, acting as medical assistant for Viridiana Burnett MD ------- EXAM: XR FOOT-RIGHT HISTORY: Trauma COMPARISON: None. FINDINGS: 2 views of the right foot demonstrate flattening in the contour of the calcaneus. The appearance may be artifactual from projection and technique but this may reflect an occult fracture of the calcaneus. Correlation with history and location of point tenderness is recommended IMPRESSION: Flattening of the calcaneus contour may reflect occult fracture of the calcaneus Nicola Spring MD 10/05/2018 23:53 EST <Kelsi Mcelroy - Last Filed: 10/05/18 23:57> - Resident Resident Name: Clarissa Parker - ED Attending Attestation I have performed the following: I have examined & evaluated the patient, The case was reviewed & discussed with the resident, I agree w/resident's findings & plan - Medical Decision Making 10/06/18 00:15 Pt seems to have a calcaneus fracture, so we will place him in a posterior splint and he will be sent home with crutches. 10/06/18 00:16 We are awaiting blood results for crp, sed rate and uric acid. 10/06/18 19:53 Pt has elevated CRP, UA and sed rate, so we will continue to treat him for gout as well. He will follow with ortho as an outpatient. <Viridiana Burnett - Last Filed: 10/06/18 19:54>
[2018-10-05] MEDS ORDERED: COLCHICINE 0.6 MG TABLET (FP) PO ONE (22:42)
[2018-10-05] MEDS ORDERED: NAPROXEN 500 MG TABLET (FP) PO ONE (22:42)
--- NOTE | 2018-10-05 22:50 | PDOC ---
History of Present Illness - General Chief Complaint: Chronic pain Stated Complaint: FOOT PAIN Time Seen by Provider: 10/05/18 22:40 - History of Present Illness Initial Comments: 38 year old male with PMH of HTN and HLD presenting with acute non-traumatic pain in his right foot yesterday evening while going to bed that has worsened since. He does not recall trauma to his foot and has no obvious skin breakage or swelling although he states this foot does feel swollen. He used Tylenol and aspirin without relief. He had one similar episode a few years prior that resolved with high dose ibuprofen. He denies any recent travel and works an active job as a plane de-icer. He does have family history of gout. Denies fevers, chills, nausea, vomiting, diarrhea, other symptoms. 10/05/18 22:44 Past History - Past Medical History Allergies/Adverse Reactions: Allergies Allergy/AdvReac Type Severity Reaction Status Date / Time shellfish derived Allergy Difficulty Verified 10/05/18 22:53 Breathing Home Medications: Ambulatory Orders Ergocalciferol (Vitamin D2) [Vitamin D2] 50,000 unit PO WEEKLY 02/26/18 Simvastatin 40 mg PO DAILY 02/26/18 Amlodipine Besylate [Norvasc -] 10 mg PO DAILY #30 tablet 03/01/18 COPD: No HTN: Yes Hypercholesterolemia: Yes - Surgical History Orthopedic Surgery: Yes (bone fragment lodged in rt elbow) - Immunization History Immunization Up to Date: Yes - Suicide/Smoking/Psychosocial Hx Smoking History: Never smoked Have you smoked in the past 12 months: No Hx Alcohol Use: No Drug/Substance Use Hx: No Substance Use Type: None Hx Substance Use Treatment: No Review of Systems - Review of Systems Constitutional: No: Chills, Diaphoresis, Fever, Loss of Appetite HEENTM: No: Eye Pain, Blurred Vision, Tearing, Cataracts Respiratory: No: Cough, Orthopnea, Shortness of Breath Cardiac (ROS): No: Edema, Irregular Heart Rate, Lightheadedness, Palpitations ABD/GI: No: Diarrhea, Nausea, Vomiting : No: Dysuria, Discharge, Frequency Musculoskeletal: Yes: Joint Pain. No: Back Pain, Gout Integumentary: No: Bruising, Lesions, Lumps, Pallor, Pruritus Neurological: No: Headache, Numbness, Paresthesia Psychiatric: No: Anxiety, Depression Endocrine: No: Flushing, Intolerance to Cold Hematologic/Lymphatic: No: Anemia, Blood Clots, Easy Bleeding *Physical Exam - Physical Exam General Appearance: Yes: Nourished, Appropriately Dressed. No: Apparent Distress HEENT: positive: EOMI, LYUDMILA, Normal ENT Inspection Neck: positive: Trachea midline, Normal Thyroid, Supple. negative: Tender, Rigid Respiratory/Chest: positive: Lungs Clear, Normal Breath Sounds. negative: Chest Tender, Respiratory Distress, Accessory Muscle Use Cardiovascular: positive: Regular Rhythm, Regular Rate Gastrointestinal/Abdominal: positive: Normal Bowel Sounds, Flat, Soft. negative : Tender Lymphatic: negative: Adenopathy, Tenderness Musculoskeletal: positive: Decreased Range of Motion (right ankle decreased range of motion decreased 2/2 pain). negative: Normal Inspection Extremity: negative: Normal Inspection (tenderness to palpation over anterior flexture pont of ankle), Normal Range of Motion Integumentary: positive: Normal Color, Dry, Warm Neurologic: positive: cognos architect II-XII NML intact, Fully Oriented, Alert, Normal Mood/ Affect, Normal Response, Motor Strength 03/18 ED Treatment Course - LABORATORY CBC & Chemistry Diagram: 10/06/18 00:01 10/06/18 00:01 Medical Decision Making - Medical Decision Making 38 year old male with sudden onset right ankle pain with tenderness to palpation most concerning for gout flare up. Patient has family history of gout and does eat a lot of red meat. He had a similar episode a few years prior that resolved with high dose NSAIDs but he did not have any to try this time. Patient given colchicine, naproxen, and allopurinol. Foot XR showing calcaneal flattening concerning for possible occult fracture. Patient placed in posterior foot splint and given crutches. 10/05/18 23:10 ESR, CRP and uric acid all elevated. Will DC with NSAIDs, allopurinol 100 daily for 7 days, colchicine 0.6 x 2 days and Ortho follow up for further therapy. 10/06/18 01:35 *DC/Admit/Observation/Transfer Diagnosis at time of Disposition: Foot pain, right - Discharge Dispostion Disposition: HOME Condition at time of disposition: Fair Decision to Admit order: No - Referrals Referrals: Papa Rose MD [Primary Care Provider] - Brendan Herrmann DO [Staff Physician] - - Patient Instructions Printed Discharge Instructions: DI for Gout, Foot Fracture, How to Use Crutches Additional Instructions: Please use the medication as prescribed. Please make an appointment with the orthopedic surgeon this week to have an evaluation of your foot. Please keep the cast until you see the orthopedic doctor. Please return to the ED if you have any new or worsening symptoms. - Post Discharge Activity
[2018-10-05 22:57] VITALS: PULSE 88; BMI 42.2
[2018-10-05] MEDS ORDERED: COLCHICINE 0.6 MG TABLET (FP) ONE (22:59)
[2018-10-05] MEDS ORDERED: NAPROXEN 500 MG TABLET (FP) ONE (22:59)
[2018-10-05] MEDS ORDERED: ALLOPURINOL 100 MG TABLET (FP) ONE (23:00)
[2018-10-06 00:09] LABS: BASO % 0.6 % (0-2.0); EOS % 0.6 % (0-4.5); HEMATOCRIT 37.2 % (35.4-49); HEMOGLOBIN 12.7 GM/dL (11.7-16.9); LYMPH % 16.1 % (8-40); MCHC 34.2 g/dl (32.0-35.9); MEAN CELL VOLUME 81.7 fl (80-96); MEAN PLT VOLUME 10.3 fl (7.5-11.1); MONO % 5.9 % (3.8-10.2); NEUT % 76.8 % (42.8-82.8); PLATELET COUNT 207 K/MM3 (134-434); RBC 4.56 M/mm3 (4.00-5.60); RDW 14.1 % (11.9-15.9); WHITE BLOOD COUNT 11.1 K/mm3 (4.0-10.0)
[2018-10-06 00:48] LABS: ALBUMIN 3.6 g/dl (3.4-5.0); ALK PHOS 78 U/L (45-117); ANION GAP 8 MMOL/L (8-16); BILIRUBIN,TOTAL 0.4 mg/dL (0.2-1); BLOOD UREA NITROGEN 16 mg/dL (7-18); CALCIUM 8.4 mg/dL (8.5-10.1); CHLORIDE 102 mmol/L (98-107); CO2 27 mmol/L (21-32); CREATININE 1.2 mg/dL (0.55-1.3); GLUCOSE,RANDOM 109 mg/dL (74-106); POTASSIUM 3.7 mmol/L (3.5-5.1); SGOT/AST 14 U/L (15-37); SGPT/ALT 24 U/L (13-61); SODIUM 136 mmol/L (136-145); TOT PROT 7.4 g/dl (6.4-8.2)
[2018-10-06 01:18] LABS: PLATELET ESTIMATE ADEQUATE
[2018-10-06 01:46] LABS: URIC ACID 7.8 mg/dL (2.6-7.2)
[2018-10-06 02:18] VITALS: BP 170/85; TEMP 97.9
== END 2018-10-06 02:30 | disposition home or self-care (01) ==
LOC: JER 22:38
DX: M10.9 Gout, unspecified (principal); I10 Essential (primary) hypertension; E78.5 Hyperlipidemia, unspecified
CPT/HCPCS: 36415; 73630-TC-RT-FY; 80053; 84550; 85025; 85651; 86140; 99283-25

== ENCOUNTER 2022-05-17 05:01 | Emergency (ER) | payer OTHER ==
[2022-05-17] MEDS ORDERED: NITROGLYCERIN SUBLINGUAL 1/150 0.4 MG TAB ONE ×2 (05:21→05:42)
[2022-05-17 05:22] VITALS: TEMP 98.1; BMI 50.1
[2022-05-17] MEDS ORDERED: NITROGLYCERIN SUBLINGUAL 1/150 0.4 MG TAB SL ONE ×2 (05:40→05:53)
[2022-05-17] MEDS ORDERED: ASPIRIN 81 MG CHEWABLE TABLETS PO ONE (05:54)
[2022-05-17] MEDS ORDERED: ASPIRIN 81 MG CHEWABLE TABLETS ONE (06:05)
[2022-05-17] MEDS ORDERED: ACETAMINOPHEN 500 MG TABLET (FP) PO ONE (07:16)
[2022-05-17] MEDS ORDERED: ACETAMINOPHEN 325 MG TABLET (FP) ONE (07:20)
[2022-05-17 08:33] LABS: BASO % 0.4 % (0-2.0); HEMATOCRIT 35.2 % (35.4-49); HEMOGLOBIN 11.1 GM/dL (11.7-16.9); LYMPH % 24.5 % (8-40); MCH 24.4 pg (25.7-33.7); MCHC 31.7 g/dl (32.0-35.9); MEAN CELL VOLUME 77.1 fl (80-96); MEAN PLT VOLUME 10.1 fl (7.5-11.1); MONO % 10.9 % (3.8-10.2); NEUT % 57.2 % (42.8-82.8); PLATELET COUNT 227 10^3/uL (134-434); RBC 4.56 M/mm3 (4.00-5.60); WHITE BLOOD COUNT 8.9 K/mm3 (4.0-10.0)
[2022-05-17 08:38] LABS: INR 0.99 (0.83-1.09); PROTHROMBIN TIME (PATIENT) 11.4 SEC (9.7-13.0)
[2022-05-17 08:40] LABS: ALBUMIN 3.2 g/dl (3.4-5.0)
[2022-05-17 08:41] LABS: ACTIVATED PTT 27.9 SECONDS (25.2-36.5)
[2022-05-17 08:43] LABS: CREATININE 1.7 mg/dL (0.55-1.3)
[2022-05-17 08:44] LABS: BILIRUBIN,TOTAL 0.2 mg/dL (0.2-1)
[2022-05-17 08:45] LABS: TOT PROT 7.3 g/dl (6.4-8.2)
[2022-05-17] MEDS ORDERED: SODIUM CHLORIDE 0.9% 500 ML INFUS.BAG IV ONE (08:51)
[2022-05-17] MEDS ORDERED: amLODIPine BESYLATE 10 MG TABLET (FP) PO ONE (08:56)
[2022-05-17] MEDS ORDERED: amLODIPine BESYLATE 10 MG TABLET (FP) ONE (09:45)
[2022-05-17 11:21] LABS: EPI CELLS 16 /uL (0-25.1); HYALINE CASTS 0 /uL (0-3.1); PH,URINE 5.5 (5.0-8.0); URINE APPEARANCE CLEAR; URINE BACTERIA 175 /uL (0-1359); URINE BILIRUBIN NEGATIVE (NEGATIVE); URINE COLOR YELLOW; URINE GLUCOSE (UA) NEGATIVE (NEGATIVE); URINE KETONE NEGATIVE (NEGATIVE); URINE LEUK ESTERASE TRACE (NEGATIVE); URINE NITRITE NEGATIVE (NEGATIVE); URINE PROTEIN 1+ (NEGATIVE); URINE RBC 13 /uL (0-23.9); URINE UROBILINOGEN 0.2 mg/dL (0.2-1.0); URINE WBC 39 /uL (0-25.8)
[2022-05-17 13:01] VITALS: BP 188/121; PULSE 90
== END 2022-05-17 13:01 | disposition left against medical advice (07) ==
LOC: JER 05:01
DX: R10.12 Left upper quadrant pain (principal); I10 Essential (primary) hypertension
CPT/HCPCS: 36415; 71046-TC-FY; 74176-TC; 80053; 81003; 84484; 85025; 85610; 85730; 93005; 93010; 99285-25

== ENCOUNTER 2022-09-10 11:07 | Emergency (ER) | payer OTHER ==
[2022-09-10 11:34] VITALS: BP 180/102; PULSE 84; RESP 18; TEMP 97.9; BMI 50.8
[2022-09-10] MEDS ORDERED: DEXAMETHASONE LIQUID 0.5 MG/5 ML PO ONE (12:31)
[2022-09-10] MEDS ORDERED: DEXAMETHASONE SOD PHOSPHATE 10 MG/1 ML VIAL ONE (12:33)
[2022-09-10 14:25] LABS: THROAT:GRP A STREP NOT DETECTED (NOTDETECTED)
== END 2022-09-10 13:52 | disposition home or self-care (01) ==
LOC: JER 11:07 → JERFT 11:07 → JER 13:52
DX: J02.9 Acute pharyngitis, unspecified (principal)
CPT/HCPCS: 0241U-QW; 87651; 99283-25